=== PATIENT | female | born 1940 | race Asian ===

== ENCOUNTER 2016-11-28 10:51 | Emergency (ER) | payer OTHER ==
[~2016-11-28] VITALS: Ht 160 cm; Wt 72.6 kg
[2016-11-28 10:59] VITALS: BP_SYST 206
[2016-11-28] MEDS ORDERED: hydrALAZINE HCL 20 MG/ML VIAL IVP ONE (12:15)
[2016-11-28 12:34] LABS: BASOPHILS % (AUTO) 0.5 % (0.0-2.0); EOSINOPHILS # (AUTO) 0.2 K/uL (0.0-0.4); EOSINOPHILS % (AUTO) 4.8 % (0.0-4.0); HEMATOCRIT 43.6 % (36-48); LYMPHOCYTES # (AUTO) 1.8 K/uL (1.0-5.5); LYMPHOCYTES % (AUTO) 34.2 % (20.5-51.5); MEAN CORPUSCULAR HEMOGLOBIN 29 pg (27-31); MEAN CORPUSCULAR HGB CONC 32 % (32-36); MEAN CORPUSCULAR VOLUME 92 fL (79.0-98.0); MONOCYTES # (AUTO) 0.4 K/uL (0.0-1.0); MONOCYTES % (AUTO) 6.9 % (1.7-9.3); NEUTROPHILS # (AUTO) 2.8 K/uL (1.8-7.7); NEUTROPHILS % (AUTO) 53.6 % (40.0-70.0); PLATELET COUNT (AUTO) 336 K/uL (130-430); RED BLOOD CELL COUNT(AUTO) 4.76 MIL/uL (4.2-6.2); RED CELL DISTRIBUTION WIDTH 13.1 % (9.0-15.0); WHITE BLOOD COUNT (AUTO) 5.2 K/uL (4.8-10.8)
[2016-11-28 12:35] LABS: ANION GAP 7 (5-15); CALCIUM 9.8 mg/dL (8.4-11.0); CHLORIDE 99 mmol/L (98-107); CREATININE 0.81 mg/dL (0.55-1.30); GLUCOSE 185 mg/dL (70-99); POTASSIUM 3.3 mmol/L (3.5-5.1); SODIUM SERUM 137 mmol/L (136-145); UREA NITROGEN, BLOOD 13 mg/dL (8-21)
[2016-11-28 12:40] LABS: ALANINE AMINOTRANSFERASE 43 U/L (12-78); ASPARTATE AMINOTRANSFERASE 28 U/L (10-37); TOTAL BILIRUBIN 0.4 mg/dL (0.0-1.0)
[2016-11-28] MEDS ORDERED: GADOPENTETATE DIMEGLUMINE 15 ML VIAL IV ONE (14:14)
[2016-11-28] MEDS ORDERED: MECLIZINE HCL 25 MG TABLET (ANITVERT) PO ONE (16:15)
[2016-11-28 16:55] VITALS: BP_SYST 159
== END 2016-11-28 16:55 | disposition home or self-care (01) ==
LOC: SED 10:51
DX: G93.89 Other specified disorders of brain (principal); I10 Essential (primary) hypertension; Z90.49 Acquired absence of other specified parts of digestive tract
CPT/HCPCS: 36415; 70450; 70553; 71010; 80053; 83880; 84484; 85025; 96374; 99285; A9579; J0360; J8597

== ENCOUNTER 2017-03-17 11:33 | Emergency (ER) | payer OTHER ==
[~2017-03-17] VITALS: Ht 157.5 cm; Wt 68.0 kg
[2017-03-17 11:57] VITALS: BP_SYST 215
--- NOTE | 2017-03-17 12:00 | NUR ---
Patient to ER bed 7 to gown for evaluation. Side rails up. Report endorsed by DIANNE Baker.
--- NOTE | 2017-03-17 12:00 | NUR ---
Pt complains of facial pain to left side of face with minor drooping. Pt states pain has been happening for about two weeks but last night it got worse. Pt presents with minor facial drooping of mouth, but denies weakness to extremities. Pt relayed she has history of trigeminal neurolgia. Pt is nauseous and has vomited a few times. Blood pressure is elevated and patient states she did not take her BP medications this morning. No other injuries/complaints per patient or noted.
--- NOTE | 2017-03-17 12:01 | NUR ---
ER Dr. Ham at bedside examining patient.
[2017-03-17] MEDS ORDERED: methylPREDNISolone SOD SUCC/PF 62.5 MG/ML VIAL IVP ONE (12:30)
[2017-03-17] MEDS ORDERED: ONDANSETRON HCL 4 MG/2 ML VIAL IVP ONE ×2 (12:30→13:30)
[2017-03-17] MEDS ORDERED: HYDROmorphone 1 MG INJ. 1 MG/ML AMPUL IVP ONE ×2 (12:30→14:00)
--- NOTE | 2017-03-17 13:00 | NUR ---
Pt went to radiology in stable condition.
[2017-03-17 13:02] LABS: BASOPHILS % (AUTO) 0.3 % (0.0-2.0); EOSINOPHILS # (AUTO) 0.1 K/uL (0.0-0.4); EOSINOPHILS % (AUTO) 1.4 % (0.0-4.0); LYMPHOCYTES # (AUTO) 1.1 K/uL (1.0-5.5); MEAN CORPUSCULAR HEMOGLOBIN 30 pg (27-31); MEAN CORPUSCULAR HGB CONC 33 % (32-36); MEAN CORPUSCULAR VOLUME 91 fL (79.0-98.0); MONOCYTES # (AUTO) 0.4 K/uL (0.0-1.0); MONOCYTES % (AUTO) 5.4 % (1.7-9.3); NEUTROPHILS # (AUTO) 5.2 K/uL (1.8-7.7); NEUTROPHILS % (AUTO) 76.9 % (40.0-70.0); PLATELET COUNT (AUTO) 380 K/uL (130-430); RED BLOOD CELL COUNT(AUTO) 4.39 MIL/uL (4.2-6.2); RED CELL DISTRIBUTION WIDTH 12.9 % (9.0-15.0); WHITE BLOOD COUNT (AUTO) 6.9 K/uL (4.8-10.8)
[2017-03-17 13:12] LABS: ANION GAP 9 (5-15); CALCIUM 9.4 mg/dL (8.4-11.0); CHLORIDE 100 mmol/L (98-107); CREATININE 0.65 mg/dL (0.55-1.30); GLUCOSE 137 mg/dL (70-99); POTASSIUM 3.6 mmol/L (3.5-5.1); SODIUM SERUM 138 mmol/L (136-145); UREA NITROGEN, BLOOD 8 mg/dL (8-21)
[2017-03-17 13:14] LABS: PROTHROMBIN TIME 9.8 SECS (9.5-12.5)
--- NOTE | 2017-03-17 13:15 | NUR ---
Pt returned from radiology in stable condition. Radiology staff stated patient has been nauseous and needed sickness bag. notified.
[2017-03-17 13:20] LABS: ALCOHOL, BLOOD < 3 mg/dL (<10)
[2017-03-17] MEDS ORDERED: niCARdipine 25 MG in D5W 240 ML IV PRN (13:30)
[2017-03-17] MEDS ORDERED: niCARdipine 2.5 MG/ML, 10 ML VIAL (CARDENE) IV ONE (13:35)
[2017-03-17 13:45] LABS: ERYTHROCYTE SEDIMENTATION RATE 74 MM/HR (0-20)
--- NOTE | 2017-03-17 13:45 | NUR ---
Pt was vomiting, notified MD and ordered medications. Medication was given, pt tolerated well. No adverse reaction will continue to monitor.
[2017-03-17 14:05] LABS: BILIRUBIN,URINE NEGATIVE (NEGATIVE); BLOOD, URINE NEGATIVE (NEGATIVE); CLARITY/URINE CLEAR (CLEAR); COLOR,URINE YELLOW (YELLOW); GLUCOSE,URINE NEGATIVE (NEGATIVE); KETONES,URINE 1+ (NEGATIVE); LEUKOCYTE ESTERASE ,URINE NEGATIVE (NEGATIVE); NITRITE, URINE NEGATIVE (NEGATIVE); PH,URINE 6.5 (5.0-8.0); PROTEIN URINE NEGATIVE (NEGATIVE); UROBILINOGEN,URINE 0.2 (0.2-1.0)
--- NOTE | 2017-03-17 14:05 | NUR ---
Pt states still had pain to face, notified MD and ordered medications. Medication was given, pt tolerated well. No adverse reaction, will continue to monitor. at bedside.
[2017-03-17 14:16] LABS: BARBITURATE, URINE NEGATIVE (NEG <=200); BENZODIAZEPINE, URINE NEGATIVE (NEG <=150); CANNABINOID, URINE NEGATIVE (NEG <=50); COCAINE, URINE NEGATIVE (NEG <=150); METHAMPHETAMINES SCREEN,URINE NEGATIVE (NEG <=500); OPIATE, URINE NEGATIVE (NEG <=100); PHENCYCLIDINE SCREEN,URINE NEGATIVE (NEG <=25); UR TRICYCLIC ANTIDEPRESSANTS NEGATIVE (NEG <=300); URINE AMPHETAMINE NEGATIVE (NEG <=500); URINE METHADONE NEGATIVE (NEG <=200); URINE OXYCODONE SCREEN NEGATIVE (NEG <=100); URINE PROPOXYPHENE SCREEN NEGATIVE (NEG <=300)
[2017-03-17] MEDS ORDERED: NACL 0.9% 1,000 ML IV ONE (15:15)
[2017-03-17] MEDS ORDERED: PROMETHAZINE HCL 25 MG/ML AMP IVP ONE (15:15)
--- NOTE | 2017-03-17 15:20 | NUR ---
Medication was given, pt tolerated well. No adverse reaction, will continue to monitor.
[2017-03-17 16:04] VITALS: BP_SYST 126
--- NOTE | 2017-03-17 16:04 | NUR ---
Patient given written and verbal discharge instructions and verbalizes understanding. ER MD discussed with patient the results and treatment provided. Patient in stable condition. ID arm band removed. IV catheter removed intact and dressing applied, no active bleeding. Rx of [place] and Zofran given. Patient educated on pain management and to follow up with PMD. Pain Scale 0. Opportunity for questions provided and answered.
[2017-03-17] MEDS ORDERED: SIMV20TA2 PO (21:18)
[2017-03-17] MEDS ORDERED: GLU500 PO (21:18)
[2017-03-17] MEDS ORDERED: NOR10 PO (21:18)
[2017-03-17] MEDS ORDERED: CARB200T PO (21:18)
== END 2017-03-17 16:04 | disposition home or self-care (01) ==
LOC: SED 11:33
DX: G50.0 Trigeminal neuralgia (principal); I10 Essential (primary) hypertension; Z88.5 Allergy status to narcotic agent
CPT/HCPCS: 36415; 70450; 80048; 80307; 81003; 82550; 84484; 85025; 85610; 85651; 85730; 96361; 96374; 96375; 96376; 99285; G0481; G0482; J1170; J2405; J2550; J2930; J7030; J7040; J7060

== ENCOUNTER 2017-03-17 20:26 | Inpatient (IN) | payer OTHER ==
[~2017-03-17] VITALS: Ht 157.5 cm; Wt 65.8 kg
[2017-03-17 20:30] VITALS: BP_SYST 201
[2017-03-17] MEDS ORDERED: MORPHINE 4 MG/ML INJ. SYRINGE IVP ONE (21:15)
[2017-03-17] MEDS ORDERED: NACL 0.9% 1,000 ML IV ONE (21:15)
[2017-03-17] MEDS ORDERED: ONDANSETRON HCL 4 MG/2 ML VIAL IVP ONE (21:15)
[2017-03-17] MEDS ORDERED: NOR10 PO (21:18)
[2017-03-17] MEDS ORDERED: SIMV20TA2 PO (21:18)
[2017-03-17] MEDS ORDERED: GLU500 PO (21:18)
[2017-03-17] MEDS ORDERED: CARB200T PO (21:18)
[2017-03-17] MEDS ORDERED: LABETALOL 100 MG/ 20ML VIAL IVP ONE (22:00)
[2017-03-17] MEDS ORDERED: MORPHINE 2 MG/ML INJ. SYRINGE IVP PRN (22:00)
[2017-03-17] MEDS ORDERED: D5NS 1,000 ML IV SCH (22:00)
[2017-03-17 22:37] VITALS: BP_SYST 170
[2017-03-17 23:31] VITALS: BP_SYST 170
[2017-03-17 23:38] VITALS: BP_SYST 153
[2017-03-18] VITALS (7 sets, daily range): BP systolic 147–177
[2017-03-18] MEDS ORDERED: DEXTROSE 50% JECT 50 ML DISP.SYRIN IVP PRN (01:00)
[2017-03-18] MEDS ORDERED: DIPHENHYDRAMINE INJ 50 MG/ML VIAL IVP PRN (01:00)
[2017-03-18] MEDS: HYDROmorphone 1 MG INJ. 1 MG/ML AMPUL IVP PRN ×4 (01:09→21:36)
[2017-03-18] MEDS: hydrALAZINE HCL 20 MG/ML VIAL IVP PRN ×3 (04:16→16:16)
[2017-03-18] MEDS: INSULIN REGULAR, HUMAN 100 UNITS/ML, 10 ML VIAL (novoLIN R) SUBCUT PRN (05:56)
[2017-03-18] MEDS ORDERED: IPRATROPIUM BROM 0.5 MG/2.5 ML VIAL.NEB (ATROVENT) INH PRN (08:45)
[2017-03-18] MEDS ORDERED: ALBUTEROL SULFATE 0.083% 2.5 MG/3 ML VIAL.NEB INH PRN (08:45)
[2017-03-18] MEDS ORDERED: IPRATROPIUM/ALBUTEROL SULFATE 3 ML AMPUL.NEB ONE (09:04)
[2017-03-18] MEDS ORDERED: FUROSEMIDE 20 MG/2 ML VIAL IVP ONE (09:45)
[2017-03-18] MEDS ORDERED: ONDANSETRON HCL 4 MG/2 ML VIAL IVP ONE (09:45)
[2017-03-18] MEDS ORDERED: ONDANSETRON HCL 4 MG/2 ML VIAL ONE (09:53)
[2017-03-18] MEDS: D5NS 1,000 ML IV SCH (10:00)
[2017-03-18] MEDS: methylPREDNISolone SOD SUCC/PF 62.5 MG/ML VIAL IVP SCH ×3 (10:09→21:16)
[2017-03-18] MEDS ORDERED: methylPREDNISolone SOD SUCC/PF 62.5 MG/ML VIAL IVP ONE (10:15)
[2017-03-18] MEDS: CEFEPIME 1 GM in D5W 50 ML IV SCH ×2 (11:51→23:37)
[2017-03-18] MEDS: ACETAMINOPHEN 650 MG SUPP.RECT RC PRN (14:35)
[2017-03-18] MEDS: metroNIDAZOLE 500 mg/NS 100 ML IV SCH ×2 (14:35→21:16)
[2017-03-18] MEDS: IPRATROPIUM BROM 0.5 MG/2.5 ML VIAL.NEB (ATROVENT) INH SCH ×4 (18:14→23:00)
[2017-03-18] MEDS: ALBUTEROL SULFATE 0.083% 2.5 MG/3 ML VIAL.NEB INH SCH ×4 (18:14→23:00)
[2017-03-18] MEDS ORDERED: LIDOCAINE JELLY 5 ML TUBE MM ONE (22:00)
[2017-03-18] MEDS: ONDANSETRON HCL 4 MG/2 ML VIAL IVP PRN (23:37)
[2017-03-19] MEDS: ALBUTEROL SULFATE 0.083% 2.5 MG/3 ML VIAL.NEB INH SCH ×6 (03:00→23:00)
[2017-03-19] MEDS: IPRATROPIUM BROM 0.5 MG/2.5 ML VIAL.NEB (ATROVENT) INH SCH ×6 (03:00→23:00)
[2017-03-19] MEDS: methylPREDNISolone SOD SUCC/PF 62.5 MG/ML VIAL IVP SCH ×3 (06:01→21:58)
[2017-03-19] MEDS: D5NS 1,000 ML IV SCH (06:02)
[2017-03-19] MEDS: metroNIDAZOLE 500 mg/NS 100 ML IV SCH ×3 (06:03→21:58)
[2017-03-19 06:21] LABS: HEMATOCRIT 34.7 % (36-48); HEMOGLOBIN 11.7 g/dL (12.0-16.0); MEAN CORPUSCULAR HEMOGLOBIN 31 pg (27-31); MEAN CORPUSCULAR HGB CONC 34 % (32-36); MEAN CORPUSCULAR VOLUME 92 fL (79.0-98.0); PLATELET COUNT (AUTO) 318 K/uL (130-430); RED BLOOD CELL COUNT(AUTO) 3.77 MIL/uL (4.2-6.2); RED CELL DISTRIBUTION WIDTH 13.6 % (9.0-15.0); WHITE BLOOD COUNT (AUTO) 15.8 K/uL (4.8-10.8)
[2017-03-19 06:37] LABS: ANION GAP 4 (5-15); CALCIUM 8.9 mg/dL (8.4-11.0); CHLORIDE 109 mmol/L (98-107); CREATININE 0.88 mg/dL (0.55-1.30); GLUCOSE 130 mg/dL (70-99); POTASSIUM 3.5 mmol/L (3.5-5.1); SODIUM SERUM 143 mmol/L (136-145); UREA NITROGEN, BLOOD 25 mg/dL (8-21)
[2017-03-19 08:11] LABS: LYMPHOCYTES % (MANUAL) 2 % (20-46)
[2017-03-19 08:12] LABS: BASOPHILS % (MANUAL) 0 % (0-2); EOSINOPHILS % (MANUAL) 0 % (0-7); MONOCYTES % (MANUAL) 3 % (0-11)
[2017-03-19] MEDS: CEFEPIME 1 GM in D5W 50 ML IV SCH ×2 (10:14→23:30)
[2017-03-19] MEDS: hydrALAZINE HCL 20 MG/ML VIAL IVP PRN (10:16)
[2017-03-19 12:02] VITALS: BP_SYST 159
[2017-03-19] MEDS: INSULIN REGULAR, HUMAN 100 UNITS/ML, 10 ML VIAL (novoLIN R) SUBCUT PRN ×2 (12:09→18:01)
[2017-03-19] MEDS ORDERED: GADOPENTETATE DIMEGLUMINE 15 ML VIAL IV ONE (13:52)
[2017-03-19 16:50] VITALS: BP_SYST 152
[2017-03-19] MEDS: HYDROmorphone 1 MG INJ. 1 MG/ML AMPUL IVP PRN (18:09)
[2017-03-19] MEDS: ONDANSETRON HCL 4 MG/2 ML VIAL IVP PRN ×2 (18:10→18:19)
[2017-03-19 20:00] VITALS: BP_SYST 152
[2017-03-20] VITALS: BP_SYST 179
[2017-03-20] MEDS: ONDANSETRON HCL 4 MG/2 ML VIAL IVP PRN ×3 (01:08→11:42)
[2017-03-20] MEDS: HYDROmorphone 1 MG INJ. 1 MG/ML AMPUL IVP PRN ×3 (01:09→09:10)
[2017-03-20] MEDS: ALBUTEROL SULFATE 0.083% 2.5 MG/3 ML VIAL.NEB INH SCH ×5 (03:00→20:51)
[2017-03-20] MEDS: IPRATROPIUM BROM 0.5 MG/2.5 ML VIAL.NEB (ATROVENT) INH SCH ×5 (03:00→20:51)
[2017-03-20] MEDS: ACETAMINOPHEN 650 MG SUPP.RECT RC PRN (03:47)
[2017-03-20] MEDS: D5NS 1,000 ML IV SCH (03:51)
[2017-03-20] MEDS: methylPREDNISolone SOD SUCC/PF 62.5 MG/ML VIAL IVP SCH ×3 (06:08→22:46)
[2017-03-20] MEDS: metroNIDAZOLE 500 mg/NS 100 ML IV SCH ×3 (06:22→21:23)
[2017-03-20] MEDS: INSULIN REGULAR, HUMAN 100 UNITS/ML, 10 ML VIAL (novoLIN R) SUBCUT PRN ×3 (06:37→17:08)
[2017-03-20 07:30] LABS: BASOPHILS # (AUTO) 0.1 K/uL (0.0-0.2); BASOPHILS % (AUTO) 0.5 % (0.0-2.0); HEMATOCRIT 36.4 % (36-48); LYMPHOCYTES # (AUTO) 0.7 K/uL (1.0-5.5); LYMPHOCYTES % (AUTO) 3.6 % (20.5-51.5); MEAN CORPUSCULAR HEMOGLOBIN 31 pg (27-31); MEAN CORPUSCULAR HGB CONC 33 % (32-36); MEAN CORPUSCULAR VOLUME 93 fL (79.0-98.0); MONOCYTES % (AUTO) 4.9 % (1.7-9.3); NEUTROPHILS # (AUTO) 18.3 K/uL (1.8-7.7); PLATELET COUNT (AUTO) 378 K/uL (130-430); RED BLOOD CELL COUNT(AUTO) 3.91 MIL/uL (4.2-6.2); RED CELL DISTRIBUTION WIDTH 13.3 % (9.0-15.0); WHITE BLOOD COUNT (AUTO) 20.1 K/uL (4.8-10.8)
[2017-03-20 08:00] VITALS: BP_SYST 148
[2017-03-20 08:03] LABS: ANION GAP 9 (5-15); CALCIUM 8.8 mg/dL (8.4-11.0); CHLORIDE 111 mmol/L (98-107); CREATININE 1.13 mg/dL (0.55-1.30); GLUCOSE 221 mg/dL (70-99); POTASSIUM 3.9 mmol/L (3.5-5.1); SODIUM SERUM 146 mmol/L (136-145); UREA NITROGEN, BLOOD 28 mg/dL (8-21)
[2017-03-20 08:18] LABS: ALANINE AMINOTRANSFERASE 35 U/L (12-78); ALBUMIN 2.9 g/dL (3.4-4.8); ASPARTATE AMINOTRANSFERASE 24 U/L (10-37); TOTAL BILIRUBIN 0.9 mg/dL (0.0-1.0)
[2017-03-20] MEDS ORDERED: METOCLOPRAMIDE HCL 10 MG/2 ML VIAL IVP PRN (08:30)
[2017-03-20] MEDS ORDERED: DEXTROSE 50% JECT 50 ML DISP.SYRIN IVP PRN (09:45)
[2017-03-20] MEDS ORDERED: COMMUNICATION ORDER XX ONE (09:45)
[2017-03-20] MEDS ORDERED: *PPN PER PHARMACY XX PRN (09:45)
[2017-03-20] MEDS: CEFEPIME 1 GM in D5W 50 ML IV SCH ×2 (11:40→22:46)
[2017-03-20 12:35] VITALS: BP_SYST 155
[2017-03-20] MEDS ORDERED: SIMETHICONE 40 MG/0.6 ML ML ONE (13:13)
[2017-03-20] MEDS: MIDAZOLAM HCL 5 MG/5 ML VIAL ONE ×3 (13:41→15:21)
[2017-03-20] MEDS: MEPERIDINE HCL/PF 100 MG/ML AMP ONE ×2 (13:41→15:20)
[2017-03-20] MEDS: hydrALAZINE HCL 20 MG/ML VIAL IVP PRN (15:10)
[2017-03-20 16:54] VITALS: BP_SYST 134
[2017-03-20] MEDS: FAT EMULSIONS 250 ML IV SCH (17:09)
[2017-03-20] MEDS ORDERED: TPN PERIPHERAL 0.0001 ML, SODIUM ACETATE 40 MEQ, POTASSIUM CHLORIDE 20 MEQ, K PHOS 6 MM... IV SCH ×9 (18:00)
[2017-03-20 20:00] VITALS: BP_SYST 142
[2017-03-20] MEDS ORDERED: ACETAMINOPHEN 325 MG TABLET PO PRN (22:00)
[2017-03-21] VITALS (17 sets, daily range): BP systolic 106–169
[2017-03-21] MEDS: INSULIN REGULAR, HUMAN 100 UNITS/ML, 10 ML VIAL (novoLIN R) SUBCUT PRN ×4 (00:18→23:20)
[2017-03-21] MEDS: metroNIDAZOLE 500 mg/NS 100 ML IV SCH ×3 (05:58→21:23)
[2017-03-21] MEDS: methylPREDNISolone SOD SUCC/PF 62.5 MG/ML VIAL IVP SCH ×3 (06:08→21:23)
[2017-03-21] MEDS: IPRATROPIUM BROM 0.5 MG/2.5 ML VIAL.NEB (ATROVENT) INH SCH ×3 (07:00→15:00)
[2017-03-21] MEDS: ALBUTEROL SULFATE 0.083% 2.5 MG/3 ML VIAL.NEB INH SCH ×3 (07:00→15:00)
[2017-03-21 07:36] LABS: BASOPHILS # (AUTO) 0.1 K/uL (0.0-0.2); BASOPHILS % (AUTO) 0.6 % (0.0-2.0); HEMATOCRIT 34.3 % (36-48); HEMOGLOBIN 11.6 g/dL (12.0-16.0); LYMPHOCYTES # (AUTO) 0.9 K/uL (1.0-5.5); LYMPHOCYTES % (AUTO) 5.5 % (20.5-51.5); MEAN CORPUSCULAR HEMOGLOBIN 31 pg (27-31); MEAN CORPUSCULAR HGB CONC 34 % (32-36); MEAN CORPUSCULAR VOLUME 92 fL (79.0-98.0); MONOCYTES # (AUTO) 0.8 K/uL (0.0-1.0); NEUTROPHILS # (AUTO) 13.7 K/uL (1.8-7.7); NEUTROPHILS % (AUTO) 88.9 % (40.0-70.0); PLATELET COUNT (AUTO) 320 K/uL (130-430); RED BLOOD CELL COUNT(AUTO) 3.72 MIL/uL (4.2-6.2); RED CELL DISTRIBUTION WIDTH 13.5 % (9.0-15.0); WHITE BLOOD COUNT (AUTO) 15.5 K/uL (4.8-10.8)
[2017-03-21 08:11] LABS: ALBUMIN 2.8 g/dL (3.4-4.8); ANION GAP 6 (5-15); CALCIUM 8.8 mg/dL (8.4-11.0); CHLORIDE 109 mmol/L (98-107); GLUCOSE 181 mg/dL (70-99); PHOSPHORUS 2.9 mg/dL (2.7-4.5); POTASSIUM 3.8 mmol/L (3.5-5.1); SODIUM SERUM 143 mmol/L (136-145); TOTAL BILIRUBIN 0.5 mg/dL (0.0-1.0); UREA NITROGEN, BLOOD 33 mg/dL (8-21)
[2017-03-21] MEDS: hydrALAZINE HCL 20 MG/ML VIAL IVP PRN ×3 (08:22→23:03)
[2017-03-21 08:44] LABS: ALANINE AMINOTRANSFERASE 79 U/L (12-78); ASPARTATE AMINOTRANSFERASE 53 U/L (10-37)
[2017-03-21] MEDS: ADENOSINE 6MG/2ML VIAL IVP ONE ×2 (10:15→10:35)
[2017-03-21] MEDS ORDERED: ADENOSINE 6MG/2ML VIAL IVP ONE (10:15)
[2017-03-21] MEDS ORDERED: MIDAZOLAM HCL 5 MG/5 ML VIAL ONE (10:20)
[2017-03-21] MEDS ORDERED: AMIODARONE HCL 200 MG TABLET PO ONE (10:45)
[2017-03-21] MEDS ORDERED: MIDAZOLAM HCL 5 MG/5 ML VIAL IVP ONE (10:45)
[2017-03-21] MEDS: CEFEPIME 1 GM in D5W 50 ML IV SCH ×2 (11:18→23:02)
[2017-03-21] MEDS ORDERED: AMIODARONE HCL 900 MG in D5W 482 ML IV SCH (12:45)
[2017-03-21] MEDS ORDERED: AMIODARONE HCL 150 MG/3ML VIAL ONE (13:25)
[2017-03-21] MEDS ORDERED: AMIODARONE HCL 150 MG in D5W 100 ML IV ONE (13:30)
[2017-03-21] MEDS ORDERED: PANTOPRAZOLE SODIUM 40 MG TAB PO ONE (14:30)
[2017-03-21] MEDS ORDERED: ENOXAPARIN SODIUM 40 MG/0.4 ML SYRINGE SUBCUT ONE (14:30)
[2017-03-21] MEDS ORDERED: IOHEXOL 100 ML IV ONE (15:28)
[2017-03-21] MEDS: FAT EMULSIONS 250 ML IV SCH (17:42)
[2017-03-21] MEDS ORDERED: TPN PERIPHERAL 0.0001 ML, SODIUM ACETATE 40 MEQ, POTASSIUM CHLORIDE 20 MEQ, K PHOS 9 MM... IV SCH ×9 (18:00)
[2017-03-21] MEDS ORDERED: DIGOXIN 0.5 MG/2 ML AMP IVP ONE (21:00)
[2017-03-21] MEDS ORDERED: AMIODARONE HCL 200 MG TABLET PO SCH (21:00)
[2017-03-21] MEDS ORDERED: LORazepam 2 MG/ML VIAL IVP PRN (22:30)
[2017-03-21] MEDS ORDERED: LevALBUTEROL HCL 1.25 MG/0.5 ML *CONC.* VIAL.NEB (XOPENEX CONC.) INH ONE (23:00)
[2017-03-22] VITALS (23 sets, daily range): BP systolic 122–176
[2017-03-22] MEDS ORDERED: DIGOXIN 0.5 MG/2 ML AMP ONE (01:16)
[2017-03-22] MEDS: hydrALAZINE HCL 20 MG/ML VIAL IVP PRN ×5 (04:27→22:23)
[2017-03-22] MEDS: metroNIDAZOLE 500 mg/NS 100 ML IV SCH ×3 (05:41→21:23)
[2017-03-22] MEDS: methylPREDNISolone SOD SUCC/PF 62.5 MG/ML VIAL IVP SCH ×2 (05:41→13:36)
[2017-03-22] MEDS: INSULIN REGULAR, HUMAN 100 UNITS/ML, 10 ML VIAL (novoLIN R) SUBCUT PRN ×3 (06:11→17:27)
[2017-03-22 06:28] LABS: BASOPHILS % (AUTO) 0.2 % (0.0-2.0); HEMATOCRIT 37.6 % (36-48); HEMOGLOBIN 12.5 g/dL (12.0-16.0); LYMPHOCYTES # (AUTO) 0.4 K/uL (1.0-5.5); LYMPHOCYTES % (AUTO) 2.8 % (20.5-51.5); MEAN CORPUSCULAR HEMOGLOBIN 31 pg (27-31); MEAN CORPUSCULAR HGB CONC 33 % (32-36); MEAN CORPUSCULAR VOLUME 92 fL (79.0-98.0); MONOCYTES # (AUTO) 0.4 K/uL (0.0-1.0); MONOCYTES % (AUTO) 2.6 % (1.7-9.3); NEUTROPHILS % (AUTO) 94.4 % (40.0-70.0); PLATELET COUNT (AUTO) 363 K/uL (130-430); RED BLOOD CELL COUNT(AUTO) 4.08 MIL/uL (4.2-6.2); RED CELL DISTRIBUTION WIDTH 13.3 % (9.0-15.0); WHITE BLOOD COUNT (AUTO) 13.8 K/uL (4.8-10.8)
[2017-03-22 06:36] LABS: PROTHROMBIN TIME 10.6 SECS (9.5-12.5)
[2017-03-22 07:00] LABS: ALANINE AMINOTRANSFERASE 60 U/L (12-78); ALBUMIN 2.7 g/dL (3.4-4.8); ANION GAP 3 (5-15); ASPARTATE AMINOTRANSFERASE 19 U/L (10-37); CALCIUM 8.6 mg/dL (8.4-11.0); CHLORIDE 108 mmol/L (98-107); CREATININE 0.83 mg/dL (0.55-1.30); GLUCOSE 263 mg/dL (70-99); LIPASE 155 U/L (73-393); PHOSPHORUS 2.5 mg/dL (2.7-4.5); POTASSIUM 3.9 mmol/L (3.5-5.1); SODIUM SERUM 139 mmol/L (136-145); THYROID STIMULATING HORMONE 0.29 uIu/mL (0.36-3.74); TOTAL BILIRUBIN 0.5 mg/dL (0.0-1.0); UREA NITROGEN, BLOOD 30 mg/dL (8-21)
[2017-03-22] MEDS: LevALBUTEROL HCL 1.25 MG/0.5 ML *CONC.* VIAL.NEB (XOPENEX CONC.) INH SCH ×3 (08:03→19:57)
[2017-03-22] MEDS ORDERED: ENOXAPARIN SODIUM 40 MG/0.4 ML SYRINGE SUBCUT SCH (09:00)
[2017-03-22] MEDS ORDERED: PANTOPRAZOLE SODIUM 40 MG TAB PO SCH (09:00)
[2017-03-22] MEDS: CEFEPIME 1 GM in D5W 50 ML IV SCH (11:42)
[2017-03-22] MEDS: NYSTATIN 500,000 UNITS/5 ML UDC PO SCH ×2 (11:45→17:49)
[2017-03-22] MEDS ORDERED: AMIODARONE HCL 200 MG TABLET PO SCH ×2 (14:00→21:00)
[2017-03-22] MEDS ORDERED: METOPROLOL SUCCINATE 50 MG TAB.SR.24H (TOPROL XL) PO ONE (14:00)
[2017-03-22] MEDS ORDERED: AMIODARONE HCL 200 MG TABLET PO ONE (16:15)
[2017-03-22] MEDS ORDERED: TPN PERIPHERAL 0.0001 ML, SODIUM ACETATE 40 MEQ, POTASSIUM CHLORIDE 20 MEQ, K PHOS 12 M... IV SCH ×10 (18:00)
[2017-03-22] MEDS ORDERED: methylPREDNISolone SOD SUCC 40 MG/ML VIAL IVP SCH (21:00)
[2017-03-23] MEDS ORDERED: METOPROLOL SUCCINATE 50 MG TAB.SR.24H (TOPROL XL) PO SCH (09:00)
== END 2017-03-22 23:30 | disposition short-term general hospital (02) | DRG 871 ==
LOC: SED 20:26 → SMU 21:57 → STU 03-20 08:35 → SIC 03-21 10:37
PROVIDERS: ADMIT Internal Medicine Hospice and Palliative Medicine; ATTEND Internal Medicine Hospice and Palliative Medicine
PROC: 0DB68ZX Excision of Stomach, Via Natural or Artificial Opening Endoscopic, Diagnostic (ICD-10-PCS; principal; 2017-03-20 13:30)
DX: A41.9 Sepsis, unspecified organism (principal); J69.0 Pneumonitis due to inhalation of food and vomit; J96.01 Acute respiratory failure with hypoxia; E46 Unspecified protein-calorie malnutrition; I48.0 Paroxysmal atrial fibrillation; R13.10 Dysphagia, unspecified; D64.9 Anemia, unspecified; E11.9 Type 2 diabetes mellitus without complications; I47.1 Supraventricular tachycardia; B37.9 Candidiasis, unspecified; G50.0 Trigeminal neuralgia; I10 Essential (primary) hypertension; K21.0 Gastro-esophageal reflux disease with esophagitis; K29.70 Gastritis, unspecified, without bleeding; K31.7 Polyp of stomach and duodenum; Z79.899 Other long term (current) drug therapy; Z88.6 Allergy status to analgesic agent; Z88.8 Allergy status to other drugs, medicaments and biological substances; Z90.49 Acquired absence of other specified parts of digestive tract
CPT/HCPCS: 36415; 36600; 43239; 70450-TC; 70553; 71010; 71270-TC; 80048; 80053; 82803-TC; 82962; 83690-TC; 83735-TC; 83880; 84100-TC; 84443-TC; 84478-TC; 84484; 85007; 85025; 85027; 85610-TC; 87040-TC; 87081; 88305; 88312; 88313; 93005; 93306; 94640; 94760; 96361; 96374; 96375; 97110-GP; 99285; A9579; J0153; J0282; J0360; J0610; J0692; J1030; J1160; J1170; J1650; J1815; J1940; J2175; J2250; J2270; J2405; J2765; J2930; J3475; J3480; J3490; J7042; J7060; Q9967

== ENCOUNTER 2017-05-29 01:57 | Emergency (ER) | payer OTHER ==
[~2017-05-29] VITALS: Ht 157.5 cm; Wt 59.9 kg
[~2017-05-29 01:57] MED LIST: CARB200T PO; GLU500 PO; NOR10 PO; SIMV20TA2 PO
[2017-05-29 02:04] VITALS: BP_SYST 192
[2017-05-29] MEDS ORDERED: hydrALAZINE HCL 25 MG TABLET PO ONE (02:30)
[2017-05-29] MEDS ORDERED: IPRATROPIUM/ALBUTEROL SULFATE 3 ML AMPUL.NEB INH ONE (02:30)
[2017-05-29] MEDS ORDERED: hydrALAZINE HCL 25 MG TABLET ONE (02:47)
[2017-05-29 03:34] VITALS: BP_SYST 155
[2017-05-30] MEDS ORDERED: CAT.1 PO (07:00)
[2017-05-30] MEDS ORDERED: CARB200T PO (07:00)
[2017-05-30] MEDS ORDERED: AMI200 PO (07:01)
[2017-05-30] MEDS ORDERED: POTA-118 PO (07:03)
[2017-05-30] MEDS ORDERED: APIX5TAB PO (07:04)
[2017-05-30] MEDS ORDERED: HYDR-1115 PO (07:04)
[2017-05-30] MEDS ORDERED: METO25TA6 PO (07:05)
[2017-05-30] MEDS ORDERED: LOSA50TA3 PO (07:05)
[2017-05-30] MEDS ORDERED: PRO40 PO (07:06)
== END 2017-05-29 03:34 | disposition home or self-care (01) ==
LOC: SED 01:57
DX: I10 Essential (primary) hypertension (principal); R06.2 Wheezing; Z88.5 Allergy status to narcotic agent; Z88.6 Allergy status to analgesic agent
CPT/HCPCS: 94640; 99283

== ENCOUNTER 2017-05-30 06:19 | Inpatient (IN) | payer OTHER ==
[~2017-05-30] VITALS: Ht 157.5 cm; Wt 83.1 kg
[2017-05-30 06:35] VITALS: BP_SYST 188
[2017-05-30] MEDS ORDERED: CAT.1 PO (07:00)
[2017-05-30] MEDS ORDERED: cloNIDine HCL 0.1 MG TABLET PO ONE ×2 (07:00→08:15)
[2017-05-30] MEDS ORDERED: CARB200T PO (07:00)
[2017-05-30] MEDS ORDERED: AMI200 PO (07:01)
[2017-05-30] MEDS ORDERED: POTA-118 PO (07:03)
[2017-05-30] MEDS ORDERED: HYDR-1115 PO (07:04)
[2017-05-30] MEDS ORDERED: APIX5TAB PO (07:04)
[2017-05-30] MEDS ORDERED: LOSA50TA3 PO (07:05)
[2017-05-30] MEDS ORDERED: METO25TA6 PO (07:05)
[2017-05-30] MEDS ORDERED: PRO40 PO (07:06)
[2017-05-30 07:39] LABS: BASOPHILS % (AUTO) 0.3 % (0.0-2.0); EOSINOPHILS # (AUTO) 0.1 K/uL (0.0-0.4); EOSINOPHILS % (AUTO) 1.2 % (0.0-4.0); HEMATOCRIT 28.6 % (36-48); HEMOGLOBIN 9.9 g/dL (12.0-16.0); LYMPHOCYTES # (AUTO) 0.8 K/uL (1.0-5.5); LYMPHOCYTES % (AUTO) 10.6 % (20.5-51.5); MEAN CORPUSCULAR HEMOGLOBIN 33 pg (27-31); MEAN CORPUSCULAR HGB CONC 34 % (32-36); MEAN CORPUSCULAR VOLUME 95 fL (79.0-98.0); MONOCYTES # (AUTO) 0.6 K/uL (0.0-1.0); MONOCYTES % (AUTO) 8.5 % (1.7-9.3); NEUTROPHILS # (AUTO) 5.7 K/uL (1.8-7.7); NEUTROPHILS % (AUTO) 79.4 % (40.0-70.0); PLATELET COUNT (AUTO) 343 K/uL (130-430); RED CELL DISTRIBUTION WIDTH 14.3 % (9.0-15.0); WHITE BLOOD COUNT (AUTO) 7.2 K/uL (4.8-10.8)
[2017-05-30 07:46] LABS: ANION GAP 4 (5-15); CALCIUM 8.8 mg/dL (8.4-11.0); CHLORIDE 98 mmol/L (98-107); CREATININE 0.61 mg/dL (0.55-1.30); GLUCOSE 135 mg/dL (70-99); POTASSIUM 3.3 mmol/L (3.5-5.1); SODIUM SERUM 133 mmol/L (136-145); UREA NITROGEN, BLOOD 9 mg/dL (8-21)
[2017-05-30 07:51] LABS: ALANINE AMINOTRANSFERASE 19 U/L (12-78); ALBUMIN 2.8 g/dL (3.4-4.8); ASPARTATE AMINOTRANSFERASE 11 U/L (10-37); PROTHROMBIN TIME 10.1 SECS (9.5-12.5); TOTAL BILIRUBIN 0.6 mg/dL (0.0-1.0)
[2017-05-30] MEDS ORDERED: ALBUTEROL SULFATE 0.083% 2.5 MG/3 ML VIAL.NEB INH ONE ×2 (09:44→09:45)
[2017-05-30] MEDS ORDERED: IPRATROPIUM BROM 0.5 MG/2.5 ML VIAL.NEB (ATROVENT) INH ONE ×2 (09:44→09:45)
[2017-05-30] MEDS ORDERED: LEVOFLOXACIN 500 MG/D5W 100 ML IV ONE (10:00)
[2017-05-30 10:22] VITALS: BP_SYST 144
[2017-05-30] MEDS ORDERED: MIDAZOLAM HCL 5 MG/5 ML VIAL IVP ONE (12:01)
[2017-05-30] MEDS ORDERED: fentaNYL CITRATE/PF 100 MCG/2 ML AMP IVP ONE (12:01)
[2017-05-30] MEDS ORDERED: PROPOFOL 200MG/ 20ML VIAL (DIPRIVAN) IV ONE (12:01)
[2017-05-30] MEDS ORDERED: ROCURONIUM BROMIDE 10 MG/ML (ZEMURON) IV ONE (12:01)
[2017-05-30] MEDS ORDERED: SEVOFLURANE 15 MIN GAS INH ONE (12:01)
[2017-05-30] MEDS ORDERED: NS IRRIG SOLN 1000 ML IR ONE (12:01)
[2017-05-30] MEDS ORDERED: PANTOPRAZOLE SODIUM 40 MG TAB PO PRN (12:15)
[2017-05-30] MEDS ORDERED: cloNIDine HCL 0.1 MG TABLET PO PRN (12:15)
[2017-05-30 12:23] VITALS: BP_SYST 113
[2017-05-30] MEDS ORDERED: 0.45% NS 500 ML IV ONE (12:30)
[2017-05-30] MEDS ORDERED: cefTRIAXone 1 GM IVPB PREMIX 50 ML IV ONE (13:00)
[2017-05-30] MEDS ORDERED: AZITHROMYCIN 250 MG in NS 250 ML IV ONE (14:00)
[2017-05-30] MEDS: ALBUTEROL SULFATE 0.083% 2.5 MG/3 ML VIAL.NEB INH SCH ×3 (14:44→23:29)
[2017-05-30] MEDS: hydrALAZINE HCL 25 MG TABLET PO SCH ×3 (15:00→21:00)
[2017-05-30] MEDS: methylPREDNISolone SOD SUCC 40 MG/ML VIAL IVP SCH ×2 (15:03→21:40)
[2017-05-30 15:12] VITALS: BP_SYST 113
[2017-05-30 16:11] VITALS: BP_SYST 120
[2017-05-30] MEDS: metFORMIN HCL 500 MG TABLET PO SCH (18:04)
[2017-05-30 20:00] VITALS: BP_SYST 139
[2017-05-30] MEDS: SIMVASTATIN 20 MG TABLET PO SCH (21:37)
[2017-05-30] MEDS: METOPROLOL TARTRATE 25 MG TABLET PO SCH (21:38)
[2017-05-30] MEDS: LOSARTAN POTASSIUM 50 MG TABLET (COZAAR) PO SCH (21:39)
[2017-05-30] MEDS: AMIODARONE HCL 200 MG TABLET PO SCH (21:39)
[2017-05-30] MEDS: INSULIN REGULAR, HUMAN 100 UNITS/ML, 10 ML VIAL (novoLIN R) SUBCUT PRN (22:57)
[2017-05-31 00:42] VITALS: BP_SYST 144
[2017-05-31] MEDS: ALBUTEROL SULFATE 0.083% 2.5 MG/3 ML VIAL.NEB INH SCH ×6 (03:06→22:11)
[2017-05-31] MEDS: methylPREDNISolone SOD SUCC 40 MG/ML VIAL IVP SCH ×3 (06:10→21:05)
[2017-05-31 06:47] LABS: BASOPHILS % (AUTO) 0.1 % (0.0-2.0); HEMATOCRIT 30.6 % (36-48); HEMOGLOBIN 10.6 g/dL (12.0-16.0); LYMPHOCYTES # (AUTO) 0.6 K/uL (1.0-5.5); LYMPHOCYTES % (AUTO) 8.3 % (20.5-51.5); MEAN CORPUSCULAR HEMOGLOBIN 34 pg (27-31); MEAN CORPUSCULAR HGB CONC 35 % (32-36); MONOCYTES # (AUTO) 0.5 K/uL (0.0-1.0); MONOCYTES % (AUTO) 6.3 % (1.7-9.3); NEUTROPHILS # (AUTO) 6.2 K/uL (1.8-7.7); NEUTROPHILS % (AUTO) 85.3 % (40.0-70.0); PLATELET COUNT (AUTO) 334 K/uL (130-430); RED BLOOD CELL COUNT(AUTO) 3.09 MIL/uL (4.2-6.2); RED CELL DISTRIBUTION WIDTH 14.6 % (9.0-15.0); WHITE BLOOD COUNT (AUTO) 7.3 K/uL (4.8-10.8)
[2017-05-31 06:53] LABS: MEAN CORPUSCULAR VOLUME 95 fL (79.0-98.0)
[2017-05-31 07:19] LABS: ANION GAP 5 (5-15); CALCIUM 9.2 mg/dL (8.4-11.0); CHLORIDE 100 mmol/L (98-107); CREATININE 0.83 mg/dL (0.55-1.30); GLUCOSE 155 mg/dL (70-99); POTASSIUM 4.1 mmol/L (3.5-5.1); SODIUM SERUM 133 mmol/L (136-145); UREA NITROGEN, BLOOD 12 mg/dL (8-21)
[2017-05-31 08:00] VITALS: BP_SYST 155
[2017-05-31] MEDS: cefTRIAXone 1 GM IVPB PREMIX 50 ML IV SCH (09:24)
[2017-05-31] MEDS: metFORMIN HCL 500 MG TABLET PO SCH ×2 (09:25→17:43)
[2017-05-31] MEDS: METOPROLOL TARTRATE 25 MG TABLET PO SCH ×2 (09:27→21:00)
[2017-05-31] MEDS: hydrALAZINE HCL 25 MG TABLET PO SCH ×3 (09:27→20:56)
[2017-05-31] MEDS: LOSARTAN POTASSIUM 50 MG TABLET (COZAAR) PO SCH ×2 (09:28→20:56)
[2017-05-31] MEDS: AMIODARONE HCL 200 MG TABLET PO SCH ×2 (09:29→20:56)
[2017-05-31] MEDS: AZITHROMYCIN 250 MG in NS 250 ML IV SCH (09:35)
[2017-05-31] MEDS: INSULIN REGULAR, HUMAN 100 UNITS/ML, 10 ML VIAL (novoLIN R) SUBCUT PRN ×3 (11:29→21:12)
[2017-05-31 13:41] VITALS: BP_SYST 155
[2017-05-31] MEDS: cloNIDine HCL 0.1 MG TABLET PO PRN (14:45)
[2017-05-31 16:38] VITALS: BP_SYST 183
[2017-05-31] MEDS: ALPRAZolam 0.25 MG TABLET PO ONE ×2 (18:23→19:23)
[2017-05-31] MEDS: hydrALAZINE HCL 20 MG/ML VIAL IVP PRN (18:24)
[2017-05-31 20:00] VITALS: BP_SYST 153
[2017-05-31] MEDS: SIMVASTATIN 20 MG TABLET PO SCH (21:04)
[2017-05-31] MEDS ORDERED: FUROSEMIDE 40 MG/4 ML VIAL IVP ONE (22:45)
[2017-06-01] VITALS (7 sets, daily range): BP systolic 136–176
[2017-06-01] MEDS: ALBUTEROL SULFATE 0.083% 2.5 MG/3 ML VIAL.NEB INH SCH ×6 (03:11→22:55)
[2017-06-01] MEDS: cloNIDine HCL 0.1 MG TABLET PO PRN (05:03)
[2017-06-01] MEDS: methylPREDNISolone SOD SUCC 40 MG/ML VIAL IVP SCH ×3 (06:35→21:12)
[2017-06-01] MEDS: ALBUTEROL SULFATE 0.083% 2.5 MG/3 ML VIAL.NEB INH PRN ×2 (08:37→17:45)
[2017-06-01] MEDS: hydrALAZINE HCL 25 MG TABLET PO SCH ×3 (09:00→20:51)
[2017-06-01] MEDS: metFORMIN HCL 500 MG TABLET PO SCH ×2 (09:29→17:54)
[2017-06-01] MEDS: LOSARTAN POTASSIUM 50 MG TABLET (COZAAR) PO SCH ×2 (09:30→20:52)
[2017-06-01] MEDS: AMIODARONE HCL 200 MG TABLET PO SCH ×2 (09:30→20:50)
[2017-06-01] MEDS: METOPROLOL TARTRATE 25 MG TABLET PO SCH ×2 (09:31→20:49)
[2017-06-01] MEDS: cefTRIAXone 1 GM IVPB PREMIX 50 ML IV SCH (09:36)
[2017-06-01] MEDS: AZITHROMYCIN 250 MG in NS 250 ML IV SCH (10:36)
[2017-06-01] MEDS: ACETYLCYSTEINE 20% 4 ML VIAL (RT) INH SCH ×3 (11:47→20:15)
[2017-06-01] MEDS: INSULIN REGULAR, HUMAN 100 UNITS/ML, 10 ML VIAL (novoLIN R) SUBCUT PRN ×3 (12:52→20:59)
[2017-06-01] MEDS: LORazepam 1 MG TABLET PO PRN (18:44)
[2017-06-01] MEDS: SIMVASTATIN 20 MG TABLET PO SCH (20:50)
[2017-06-02 00:05] VITALS: BP_SYST 148
[2017-06-02] MEDS: ALBUTEROL SULFATE 0.083% 2.5 MG/3 ML VIAL.NEB INH PRN (01:14)
[2017-06-02] MEDS: ALBUTEROL SULFATE 0.083% 2.5 MG/3 ML VIAL.NEB INH SCH ×6 (03:00→23:02)
[2017-06-02] MEDS: methylPREDNISolone SOD SUCC 40 MG/ML VIAL IVP SCH (05:51)
[2017-06-02] MEDS: INSULIN REGULAR, HUMAN 100 UNITS/ML, 10 ML VIAL (novoLIN R) SUBCUT PRN ×2 (06:12→22:28)
[2017-06-02] MEDS: ACETYLCYSTEINE 20% 4 ML VIAL (RT) INH SCH ×3 (07:05→23:03)
[2017-06-02 08:06] VITALS: BP_SYST 181
[2017-06-02 08:16] LABS: BASOPHILS % (AUTO) 0.3 % (0.0-2.0); HEMATOCRIT 35.1 % (36-48); HEMOGLOBIN 11.7 g/dL (12.0-16.0); LYMPHOCYTES # (AUTO) 0.7 K/uL (1.0-5.5); LYMPHOCYTES % (AUTO) 4.5 % (20.5-51.5); MEAN CORPUSCULAR HEMOGLOBIN 32 pg (27-31); MEAN CORPUSCULAR HGB CONC 34 % (32-36); MEAN CORPUSCULAR VOLUME 97 fL (79.0-98.0); MONOCYTES # (AUTO) 1.2 K/uL (0.0-1.0); MONOCYTES % (AUTO) 7.6 % (1.7-9.3); PLATELET COUNT (AUTO) 464 K/uL (130-430); RED BLOOD CELL COUNT(AUTO) 3.63 MIL/uL (4.2-6.2); RED CELL DISTRIBUTION WIDTH 15.1 % (9.0-15.0); WHITE BLOOD COUNT (AUTO) 15.9 K/uL (4.8-10.8)
[2017-06-02] MEDS: METOPROLOL TARTRATE 25 MG TABLET PO SCH ×2 (08:33→22:44)
[2017-06-02] MEDS: LOSARTAN POTASSIUM 50 MG TABLET (COZAAR) PO SCH ×2 (08:34→22:44)
[2017-06-02] MEDS: cefTRIAXone 1 GM IVPB PREMIX 50 ML IV SCH (08:34)
[2017-06-02] MEDS: AMIODARONE HCL 200 MG TABLET PO SCH ×2 (08:34→22:44)
[2017-06-02] MEDS: metFORMIN HCL 500 MG TABLET PO SCH ×2 (08:34→18:02)
[2017-06-02] MEDS: hydrALAZINE HCL 25 MG TABLET PO SCH ×3 (08:35→22:43)
[2017-06-02 08:47] LABS: ANION GAP 5 (5-15); CALCIUM 9.5 mg/dL (8.4-11.0); CHLORIDE 97 mmol/L (98-107); CREATININE 0.71 mg/dL (0.55-1.30); GLUCOSE 145 mg/dL (70-99); POTASSIUM 4.2 mmol/L (3.5-5.1); SODIUM SERUM 133 mmol/L (136-145); UREA NITROGEN, BLOOD 18 mg/dL (8-21)
[2017-06-02 09:59] LABS: NEUTROPHILS % (AUTO) 87.6 % (40.0-70.0)
[2017-06-02] MEDS: AZITHROMYCIN 250 MG in NS 250 ML IV SCH (10:35)
[2017-06-02 11:17] VITALS: BP_SYST 162
[2017-06-02 12:39] VITALS: BP_SYST 138
[2017-06-02] MEDS: hydrALAZINE HCL 20 MG/ML VIAL IVP PRN ×3 (13:11→23:07)
[2017-06-02] MEDS: LORazepam 1 MG TABLET PO PRN ×2 (15:42→22:56)
[2017-06-02 16:17] VITALS: BP_SYST 156
[2017-06-02 20:00] VITALS: BP_SYST 134
[2017-06-02] MEDS: SIMVASTATIN 20 MG TABLET PO SCH (21:00)
[2017-06-02] MEDS: PANTOPRAZOLE SODIUM 40 MG TAB PO PRN (22:56)
[2017-06-03] VITALS (11 sets, daily range): BP systolic 116–180
[2017-06-03] MEDS: ALBUTEROL SULFATE 0.083% 2.5 MG/3 ML VIAL.NEB INH PRN (01:48)
[2017-06-03] MEDS: ALBUTEROL SULFATE 0.083% 2.5 MG/3 ML VIAL.NEB INH SCH ×3 (03:00→11:49)
[2017-06-03] MEDS: INSULIN REGULAR, HUMAN 100 UNITS/ML, 10 ML VIAL (novoLIN R) SUBCUT PRN ×3 (06:04→21:31)
[2017-06-03 07:49] LABS: ANION GAP 6 (5-15); CALCIUM 9.2 mg/dL (8.4-11.0); CHLORIDE 97 mmol/L (98-107); CREATININE 0.71 mg/dL (0.55-1.30); GLUCOSE 162 mg/dL (70-99); POTASSIUM 4.4 mmol/L (3.5-5.1); SODIUM SERUM 136 mmol/L (136-145); UREA NITROGEN, BLOOD 23 mg/dL (8-21)
[2017-06-03 07:51] LABS: BASOPHILS % (AUTO) 0.1 % (0.0-2.0); EOSINOPHILS % (AUTO) 0.1 % (0.0-4.0); HEMATOCRIT 32.3 % (36-48); HEMOGLOBIN 10.8 g/dL (12.0-16.0); LYMPHOCYTES # (AUTO) 0.5 K/uL (1.0-5.5); LYMPHOCYTES % (AUTO) 4.2 % (20.5-51.5); MEAN CORPUSCULAR HEMOGLOBIN 32 pg (27-31); MEAN CORPUSCULAR HGB CONC 33 % (32-36); MEAN CORPUSCULAR VOLUME 95 fL (79.0-98.0); MONOCYTES # (AUTO) 0.8 K/uL (0.0-1.0); MONOCYTES % (AUTO) 6.7 % (1.7-9.3); NEUTROPHILS # (AUTO) 10.9 K/uL (1.8-7.7); NEUTROPHILS % (AUTO) 88.9 % (40.0-70.0); PLATELET COUNT (AUTO) 483 K/uL (130-430); RED CELL DISTRIBUTION WIDTH 15.4 % (9.0-15.0); WHITE BLOOD COUNT (AUTO) 12.3 K/uL (4.8-10.8)
[2017-06-03] MEDS: ACETYLCYSTEINE 20% 4 ML VIAL (RT) INH SCH ×3 (08:11→21:00)
[2017-06-03] MEDS: metFORMIN HCL 500 MG TABLET PO SCH ×2 (08:26→18:00)
[2017-06-03] MEDS: AZITHROMYCIN 250 MG in NS 250 ML IV SCH (08:27)
[2017-06-03] MEDS: METOPROLOL TARTRATE 25 MG TABLET PO SCH ×2 (08:50→21:25)
[2017-06-03] MEDS: hydrALAZINE HCL 25 MG TABLET PO SCH ×3 (08:51→21:27)
[2017-06-03] MEDS: PANTOPRAZOLE SODIUM 40 MG TAB PO PRN (08:53)
[2017-06-03] MEDS: AMIODARONE HCL 200 MG TABLET PO SCH ×2 (08:53→21:26)
[2017-06-03] MEDS: LOSARTAN POTASSIUM 50 MG TABLET (COZAAR) PO SCH ×2 (08:54→21:25)
[2017-06-03] MEDS ORDERED: PREDNISONE 20 MG TABLET PO SCH (09:00)
[2017-06-03] MEDS: cefTRIAXone 1 GM IVPB PREMIX 50 ML IV SCH (10:23)
[2017-06-03] MEDS ORDERED: methylPREDNISolone SOD SUCC 40 MG/ML VIAL IVP ONE (13:00)
[2017-06-03] MEDS ORDERED: IPRATROPIUM/ALBUTEROL SULFATE 3 ML AMPUL.NEB INH ONE (13:00)
[2017-06-03] MEDS ORDERED: FUROSEMIDE 40 MG/4 ML VIAL IVP ONE (13:15)
[2017-06-03] MEDS: hydrALAZINE HCL 20 MG/ML VIAL IVP PRN (14:53)
[2017-06-03] MEDS ORDERED: DILTIAZEM HCL 25 MG/5 ML VIAL IVP ONE (15:45)
[2017-06-03] MEDS: DILTIAZEM HCL 125 MG in D5W 100 ML IV SCH (17:31)
[2017-06-03] MEDS: IPRATROPIUM/ALBUTEROL SULFATE 3 ML AMPUL.NEB INH SCH ×3 (17:41→23:22)
[2017-06-03] MEDS: SIMVASTATIN 20 MG TABLET PO SCH (21:26)
[2017-06-03] MEDS: methylPREDNISolone SOD SUCC 40 MG/ML VIAL IVP SCH (21:39)
[2017-06-04] VITALS (19 sets, daily range): BP systolic 96–165
[2017-06-04] MEDS: LORazepam 2 MG/ML VIAL IM PRN (02:24)
[2017-06-04] MEDS: cloNIDine HCL 0.1 MG TABLET PO PRN (02:25)
[2017-06-04] MEDS: IPRATROPIUM/ALBUTEROL SULFATE 3 ML AMPUL.NEB INH SCH ×6 (04:34→23:21)
[2017-06-04] MEDS ORDERED: DILTIAZEM HCL 125 MG/25 ML VIAL IV ONE (05:06)
[2017-06-04] MEDS: DILTIAZEM HCL 125 MG in D5W 100 ML IV SCH (05:42)
[2017-06-04] MEDS: INSULIN REGULAR, HUMAN 100 UNITS/ML, 10 ML VIAL (novoLIN R) SUBCUT PRN (06:24)
[2017-06-04 06:46] LABS: ALANINE AMINOTRANSFERASE 17 U/L (12-78); ALBUMIN 2.5 g/dL (3.4-4.8); ANION GAP 7 (5-15); ASPARTATE AMINOTRANSFERASE 14 U/L (10-37); CALCIUM 9.1 mg/dL (8.4-11.0); CHLORIDE 97 mmol/L (98-107); CREATININE 0.96 mg/dL (0.55-1.30); GLUCOSE 191 mg/dL (70-99); POTASSIUM 4.5 mmol/L (3.5-5.1); SODIUM SERUM 134 mmol/L (136-145); TOTAL BILIRUBIN 0.4 mg/dL (0.0-1.0); UREA NITROGEN, BLOOD 35 mg/dL (8-21)
[2017-06-04] MEDS: ACETYLCYSTEINE 20% 4 ML VIAL (RT) INH SCH ×3 (07:37→21:00)
[2017-06-04] MEDS: metFORMIN HCL 500 MG TABLET PO SCH ×2 (07:46→18:09)
[2017-06-04] MEDS: LOSARTAN POTASSIUM 50 MG TABLET (COZAAR) PO SCH ×2 (07:46→21:43)
[2017-06-04] MEDS: METOPROLOL TARTRATE 25 MG TABLET PO SCH ×2 (07:47→21:41)
[2017-06-04] MEDS: LORazepam 1 MG TABLET PO PRN (07:48)
[2017-06-04 07:49] LABS: BASOPHILS % (AUTO) 0.1 % (0.0-2.0); HEMATOCRIT 30.1 % (36-48); HEMOGLOBIN 10.1 g/dL (12.0-16.0); LYMPHOCYTES # (AUTO) 0.3 K/uL (1.0-5.5); LYMPHOCYTES % (AUTO) 2.6 % (20.5-51.5); MEAN CORPUSCULAR HEMOGLOBIN 32 pg (27-31); MEAN CORPUSCULAR HGB CONC 34 % (32-36); MEAN CORPUSCULAR VOLUME 96 fL (79.0-98.0); MONOCYTES # (AUTO) 0.3 K/uL (0.0-1.0); MONOCYTES % (AUTO) 2.5 % (1.7-9.3); NEUTROPHILS # (AUTO) 12.2 K/uL (1.8-7.7); NEUTROPHILS % (AUTO) 94.8 % (40.0-70.0); PLATELET COUNT (AUTO) 479 K/uL (130-430); RED BLOOD CELL COUNT(AUTO) 3.14 MIL/uL (4.2-6.2); WHITE BLOOD COUNT (AUTO) 12.8 K/uL (4.8-10.8)
[2017-06-04] MEDS: AMIODARONE HCL 200 MG TABLET PO SCH ×2 (09:00→21:42)
[2017-06-04] MEDS: hydrALAZINE HCL 25 MG TABLET PO SCH ×3 (09:00→21:42)
[2017-06-04] MEDS: PANTOPRAZOLE SODIUM 40 MG TAB PO PRN (09:51)
[2017-06-04] MEDS: FUROSEMIDE 40 MG/4 ML VIAL IVP SCH (09:52)
[2017-06-04] MEDS: methylPREDNISolone SOD SUCC 40 MG/ML VIAL IVP SCH ×2 (09:52→21:40)
[2017-06-04] MEDS: cefTRIAXone 1 GM IVPB PREMIX 50 ML IV SCH (09:53)
[2017-06-04] MEDS: SIMVASTATIN 20 MG TABLET PO SCH (21:42)
[2017-06-05] VITALS (13 sets, daily range): BP systolic 69–176
[2017-06-05] MEDS: IPRATROPIUM/ALBUTEROL SULFATE 3 ML AMPUL.NEB INH SCH (03:25)
[2017-06-05] MEDS ORDERED: METOPROLOL TARTRATE 50 MG TABLET PO ONE (04:45)
[2017-06-05] MEDS: LevALBUTEROL HCL 1.25 MG/0.5 ML *CONC.* VIAL.NEB (XOPENEX CONC.) INH SCH ×3 (07:16→19:36)
[2017-06-05] MEDS: ACETYLCYSTEINE 20% 4 ML VIAL (RT) INH SCH ×3 (07:16→21:00)
[2017-06-05 07:57] LABS: ALANINE AMINOTRANSFERASE 16 U/L (12-78); ALBUMIN 2.3 g/dL (3.4-4.8); ANION GAP 4 (5-15); ASPARTATE AMINOTRANSFERASE 10 U/L (10-37); CHLORIDE 101 mmol/L (98-107); CREATININE 1.27 mg/dL (0.55-1.30); GLUCOSE 192 mg/dL (70-99); POTASSIUM 4.4 mmol/L (3.5-5.1); SODIUM SERUM 136 mmol/L (136-145); TOTAL BILIRUBIN 0.3 mg/dL (0.0-1.0); UREA NITROGEN, BLOOD 52 mg/dL (8-21)
[2017-06-05 08:05] LABS: HEMATOCRIT 28.2 % (36-48); HEMOGLOBIN 9.7 g/dL (12.0-16.0); MEAN CORPUSCULAR HEMOGLOBIN 33 pg (27-31); MEAN CORPUSCULAR HGB CONC 34 % (32-36); MEAN CORPUSCULAR VOLUME 97 fL (79.0-98.0); PLATELET COUNT (AUTO) 556 K/uL (130-430); RED CELL DISTRIBUTION WIDTH 15.2 % (9.0-15.0); WHITE BLOOD COUNT (AUTO) 13.4 K/uL (4.8-10.8)
[2017-06-05] MEDS: LOSARTAN POTASSIUM 50 MG TABLET (COZAAR) PO SCH ×2 (08:09→20:55)
[2017-06-05] MEDS: metFORMIN HCL 500 MG TABLET PO SCH ×2 (08:10→17:21)
[2017-06-05] MEDS: hydrALAZINE HCL 25 MG TABLET PO SCH ×3 (08:12→20:55)
[2017-06-05] MEDS: AMIODARONE HCL 200 MG TABLET PO SCH ×2 (08:12→21:05)
[2017-06-05] MEDS: METOPROLOL TARTRATE 25 MG TABLET PO SCH ×2 (08:13→20:55)
[2017-06-05] MEDS: methylPREDNISolone SOD SUCC 40 MG/ML VIAL IVP SCH ×2 (08:13→21:04)
[2017-06-05] MEDS: FUROSEMIDE 40 MG/4 ML VIAL IVP SCH (08:13)
[2017-06-05] MEDS ORDERED: cefTRIAXone 1 GM IVPB PREMIX 50 ML IV SCH (09:00)
[2017-06-05] MEDS: NACL 0.9% 1,000 ML IV SCH ×2 (09:39→23:47)
[2017-06-05 09:51] LABS: BASOPHILS % (MANUAL) 0 % (0-2); EOSINOPHILS % (MANUAL) 0 % (0-7); LYMPHOCYTES % (MANUAL) 8 % (20-46); MONOCYTES % (MANUAL) 1 % (0-11)
[2017-06-05] MEDS: ONDANSETRON HCL 4 MG/2 ML VIAL IVP PRN (10:33)
[2017-06-05] MEDS: INSULIN REGULAR, HUMAN 100 UNITS/ML, 10 ML VIAL (novoLIN R) SUBCUT PRN (12:33)
[2017-06-05] MEDS: PIPERACILLIN/TAZO 3.375/DEX-IS 50 ML IV SCH ×3 (12:56→23:48)
[2017-06-05 15:08] LABS: EOSINOPHILS % (AUTO) 0.1 % (0.0-4.0)
[2017-06-05 15:09] LABS: BASOPHILS # (AUTO) 0.5 K/uL (0.0-0.2); BASOPHILS % (AUTO) 4.1 % (0.0-2.0); HEMATOCRIT 30.3 % (36-48); HEMOGLOBIN 9.9 g/dL (12.0-16.0); LYMPHOCYTES # (AUTO) 0.4 K/uL (1.0-5.5); LYMPHOCYTES % (AUTO) 3.6 % (20.5-51.5); MEAN CORPUSCULAR HEMOGLOBIN 31 pg (27-31); MEAN CORPUSCULAR HGB CONC 33 % (32-36); MEAN CORPUSCULAR VOLUME 95 fL (79.0-98.0); MONOCYTES # (AUTO) 0.3 K/uL (0.0-1.0); MONOCYTES % (AUTO) 2.6 % (1.7-9.3); NEUTROPHILS # (AUTO) 10.6 K/uL (1.8-7.7); NEUTROPHILS % (AUTO) 89.6 % (40.0-70.0); PLATELET COUNT (AUTO) 492 K/uL (130-430); RED BLOOD CELL COUNT(AUTO) 3.19 MIL/uL (4.2-6.2); RED CELL DISTRIBUTION WIDTH 15.1 % (9.0-15.0); WHITE BLOOD COUNT (AUTO) 11.8 K/uL (4.8-10.8)
[2017-06-05 15:15] LABS: ANION GAP 2 (5-15); CALCIUM 8.5 mg/dL (8.4-11.0); CHLORIDE 104 mmol/L (98-107); CREATININE 1.48 mg/dL (0.55-1.30); GLUCOSE 239 mg/dL (70-99); POTASSIUM 4.9 mmol/L (3.5-5.1); SODIUM SERUM 137 mmol/L (136-145); UREA NITROGEN, BLOOD 56 mg/dL (8-21)
[2017-06-05] MEDS ORDERED: NOREPINEPHRINE 4 MG/4 ML VIAL IV ONE (15:17)
[2017-06-05 15:20] LABS: ALANINE AMINOTRANSFERASE 16 U/L (12-78); ASPARTATE AMINOTRANSFERASE 13 U/L (10-37); TOTAL BILIRUBIN 0.3 mg/dL (0.0-1.0)
[2017-06-05] MEDS ORDERED: EPINEPHrine JECT 1 MG/10 ML SYR IVP ONE (15:40)
[2017-06-05] MEDS: LevALBUTEROL HCL 1.25 MG/0.5 ML *CONC.* VIAL.NEB (XOPENEX CONC.) INH PRN (15:56)
[2017-06-05] MEDS ORDERED: ROCURONIUM BROMIDE 10 MG/ML (ZEMURON) IV ONE (16:00)
[2017-06-05 16:19] LABS: INR 1.1 (0.8-1.2); PROTHROMBIN TIME 11.2 SECS (9.5-12.5)
[2017-06-05] MEDS: NOREPINEPHRINE BITARTRATE 4 MG in D5W 246 ML IV PRN (16:52)
[2017-06-05] MEDS: SIMVASTATIN 20 MG TABLET PO SCH (21:04)
[2017-06-06] VITALS (28 sets, daily range): BP systolic 66–153
[2017-06-06] MEDS: LORazepam 2 MG/ML VIAL IM PRN (00:54)
[2017-06-06] MEDS: NACL 0.9% 1,000 ML IV SCH ×3 (01:15→19:29)
[2017-06-06] MEDS: LevALBUTEROL HCL 1.25 MG/0.5 ML *CONC.* VIAL.NEB (XOPENEX CONC.) INH SCH ×4 (01:26→19:34)
[2017-06-06] MEDS: PIPERACILLIN/TAZO 3.375/DEX-IS 50 ML IV SCH ×4 (06:15→23:29)
[2017-06-06] MEDS: INSULIN REGULAR, HUMAN 100 UNITS/ML, 10 ML VIAL (novoLIN R) SUBCUT PRN ×2 (06:21→16:52)
[2017-06-06 06:51] LABS: ALANINE AMINOTRANSFERASE 30 U/L (12-78); ALBUMIN 1.8 g/dL (3.4-4.8); ANION GAP 7 (5-15); ASPARTATE AMINOTRANSFERASE 30 U/L (10-37); CALCIUM 8.5 mg/dL (8.4-11.0); CHLORIDE 103 mmol/L (98-107); CREATININE 1.53 mg/dL (0.55-1.30); GLUCOSE 206 mg/dL (70-99); POTASSIUM 4.1 mmol/L (3.5-5.1); SODIUM SERUM 139 mmol/L (136-145); TOTAL BILIRUBIN 0.6 mg/dL (0.0-1.0); UREA NITROGEN, BLOOD 63 mg/dL (8-21)
[2017-06-06 06:55] LABS: BASOPHILS # (AUTO) 0.4 K/uL (0.0-0.2); BASOPHILS % (AUTO) 1.9 % (0.0-2.0); HEMATOCRIT 33.9 % (36-48); HEMOGLOBIN 11.1 g/dL (12.0-16.0); LYMPHOCYTES # (AUTO) 0.4 K/uL (1.0-5.5); LYMPHOCYTES % (AUTO) 1.7 % (20.5-51.5); MEAN CORPUSCULAR HEMOGLOBIN 31 pg (27-31); MEAN CORPUSCULAR HGB CONC 33 % (32-36); MEAN CORPUSCULAR VOLUME 94 fL (79.0-98.0); MONOCYTES # (AUTO) 0.3 K/uL (0.0-1.0); MONOCYTES % (AUTO) 1.4 % (1.7-9.3); NEUTROPHILS # (AUTO) 19.7 K/uL (1.8-7.7); PLATELET COUNT (AUTO) 403 K/uL (130-430); RED BLOOD CELL COUNT(AUTO) 3.63 MIL/uL (4.2-6.2); RED CELL DISTRIBUTION WIDTH 14.5 % (9.0-15.0); WHITE BLOOD COUNT (AUTO) 20.8 K/uL (4.8-10.8)
[2017-06-06] MEDS ORDERED: AMIODARONE HCL 200 MG TABLET ONE (07:29)
[2017-06-06] MEDS ORDERED: AMIODARONE HCL 200 MG TABLET GT ONE (07:40)
[2017-06-06] MEDS: methylPREDNISolone SOD SUCC 40 MG/ML VIAL IVP SCH ×2 (08:03→21:13)
[2017-06-06] MEDS: AMIODARONE HCL 200 MG TABLET PO SCH (08:03)
[2017-06-06] MEDS: metFORMIN HCL 500 MG TABLET PO SCH (08:03)
[2017-06-06] MEDS: METOPROLOL TARTRATE 25 MG TABLET PO SCH ×2 (08:04→21:13)
[2017-06-06] MEDS: hydrALAZINE HCL 25 MG TABLET PO SCH ×3 (08:04→21:13)
[2017-06-06] MEDS: LOSARTAN POTASSIUM 50 MG TABLET (COZAAR) PO SCH ×2 (08:05→21:12)
[2017-06-06] MEDS: ACETYLCYSTEINE 20% 4 ML VIAL (RT) INH SCH ×3 (08:07→21:00)
[2017-06-06] MEDS ORDERED: AMIODARONE HCL 150 MG in D5W 100 ML IV ONE (08:15)
[2017-06-06] MEDS ORDERED: METOPROLOL TARTRATE 5 MG/5 ML VIAL IVP ONE ×2 (10:15→16:30)
[2017-06-06] MEDS: IBUPROFEN 100 MG/5 ML UDC NG PRN (12:55)
[2017-06-06] MEDS: NOREPINEPHRINE BITARTRATE 4 MG in D5W 246 ML IV PRN ×2 (14:48→19:29)
[2017-06-06] MEDS: LevALBUTEROL HCL 1.25 MG/0.5 ML *CONC.* VIAL.NEB (XOPENEX CONC.) INH PRN (15:11)
[2017-06-06] MEDS: LORazepam 2 MG/ML VIAL IVP PRN (15:46)
[2017-06-06] MEDS: AMIODARONE HCL 900 MG in D5W 482 ML IV SCH (17:05)
[2017-06-06] MEDS: SIMVASTATIN 20 MG TABLET PO SCH (21:12)
[2017-06-07] VITALS (31 sets, daily range): BP systolic 85–167
[2017-06-07] MEDS: LevALBUTEROL HCL 1.25 MG/0.5 ML *CONC.* VIAL.NEB (XOPENEX CONC.) INH SCH ×4 (01:36→19:43)
[2017-06-07] MEDS: NACL 0.9% 1,000 ML IV SCH ×3 (03:39→23:38)
[2017-06-07] MEDS ORDERED: NOREPINEPHRINE 4 MG/4 ML VIAL IV ONE (05:34)
[2017-06-07] MEDS: NOREPINEPHRINE BITARTRATE 4 MG in D5W 246 ML IV PRN (05:37)
[2017-06-07] MEDS: PIPERACILLIN/TAZO 3.375/DEX-IS 50 ML IV SCH ×4 (05:39→23:38)
[2017-06-07 06:39] LABS: HEMATOCRIT 34.2 % (36-48); HEMOGLOBIN 11.2 g/dL (12.0-16.0); MEAN CORPUSCULAR HEMOGLOBIN 31 pg (27-31); MEAN CORPUSCULAR HGB CONC 33 % (32-36); MEAN CORPUSCULAR VOLUME 93 fL (79.0-98.0); PLATELET COUNT (AUTO) 349 K/uL (130-430); RED BLOOD CELL COUNT(AUTO) 3.67 MIL/uL (4.2-6.2); RED CELL DISTRIBUTION WIDTH 15.1 % (9.0-15.0); WHITE BLOOD COUNT (AUTO) 24.7 K/uL (4.8-10.8)
[2017-06-07] MEDS: INSULIN REGULAR, HUMAN 100 UNITS/ML, 10 ML VIAL (novoLIN R) SUBCUT PRN ×4 (06:47→20:36)
[2017-06-07 07:03] LABS: ALANINE AMINOTRANSFERASE 72 U/L (12-78); ALBUMIN 1.7 g/dL (3.4-4.8); ANION GAP 6 (5-15); ASPARTATE AMINOTRANSFERASE 40 U/L (10-37); CHLORIDE 104 mmol/L (98-107); CREATININE 1.56 mg/dL (0.55-1.30); GLUCOSE 239 mg/dL (70-99); POTASSIUM 3.3 mmol/L (3.5-5.1); SODIUM SERUM 136 mmol/L (136-145); TOTAL BILIRUBIN 0.3 mg/dL (0.0-1.0); UREA NITROGEN, BLOOD 66 mg/dL (8-21)
[2017-06-07] MEDS: ACETYLCYSTEINE 20% 4 ML VIAL (RT) INH SCH ×2 (07:06→15:55)
[2017-06-07 07:56] LABS: BAND % (MANUAL) 5 % (0-6); BASOPHILS % (MANUAL) 0 % (0-2); EOSINOPHILS % (MANUAL) 0 % (0-7); LYMPHOCYTES % (MANUAL) 2 % (20-46); MONOCYTES % (MANUAL) 0 % (0-11)
[2017-06-07] MEDS ORDERED: POTASSIUM CHLORIDE 20 MEQ TAB.PRT.SR PO ONE (08:15)
[2017-06-07] MEDS: methylPREDNISolone SOD SUCC 40 MG/ML VIAL IVP SCH ×2 (09:34→20:32)
[2017-06-07] MEDS: METOPROLOL TARTRATE 50 MG TABLET PO SCH ×2 (09:34→20:31)
[2017-06-07] MEDS: FLUCONAZOLE 200 mg/ NS 100 ML IV SCH (12:06)
[2017-06-07] MEDS: MORPHINE 2 MG/ML INJ. SYRINGE IVP PRN (14:09)
[2017-06-07] MEDS ORDERED: AMIODARONE HCL 900 MG/18 ML VIAL IV ONE (20:17)
[2017-06-07] MEDS: AMIODARONE HCL 900 MG in D5W 482 ML IV SCH (20:31)
[2017-06-07] MEDS: SIMVASTATIN 20 MG TABLET PO SCH (20:32)
[2017-06-08] VITALS (31 sets, daily range): BP systolic 90–174
[2017-06-08] MEDS: LevALBUTEROL HCL 1.25 MG/0.5 ML *CONC.* VIAL.NEB (XOPENEX CONC.) INH SCH ×4 (00:50→19:36)
[2017-06-08] MEDS: PIPERACILLIN/TAZO 3.375/DEX-IS 50 ML IV SCH ×3 (05:02→17:31)
[2017-06-08 06:46] LABS: BASOPHILS % (AUTO) 0.2 % (0.0-2.0); HEMATOCRIT 29.6 % (36-48); HEMOGLOBIN 9.8 g/dL (12.0-16.0); LYMPHOCYTES # (AUTO) 0.4 K/uL (1.0-5.5); LYMPHOCYTES % (AUTO) 1.7 % (20.5-51.5); MEAN CORPUSCULAR HEMOGLOBIN 31 pg (27-31); MEAN CORPUSCULAR HGB CONC 33 % (32-36); MEAN CORPUSCULAR VOLUME 92 fL (79.0-98.0); MONOCYTES # (AUTO) 0.2 K/uL (0.0-1.0); NEUTROPHILS # (AUTO) 20.7 K/uL (1.8-7.7); NEUTROPHILS % (AUTO) 97.1 % (40.0-70.0); PLATELET COUNT (AUTO) 296 K/uL (130-430); RED BLOOD CELL COUNT(AUTO) 3.21 MIL/uL (4.2-6.2); RED CELL DISTRIBUTION WIDTH 15.1 % (9.0-15.0); WHITE BLOOD COUNT (AUTO) 21.3 K/uL (4.8-10.8)
[2017-06-08] MEDS: INSULIN REGULAR, HUMAN 100 UNITS/ML, 10 ML VIAL (novoLIN R) SUBCUT PRN ×4 (06:46→21:43)
[2017-06-08 06:55] LABS: ALANINE AMINOTRANSFERASE 48 U/L (12-78); ALBUMIN 1.5 g/dL (3.4-4.8); ANION GAP 7 (5-15); ASPARTATE AMINOTRANSFERASE 21 U/L (10-37); CHLORIDE 105 mmol/L (98-107); CREATININE 1.35 mg/dL (0.55-1.30); GLUCOSE 198 mg/dL (70-99); PHOSPHORUS 2.5 mg/dL (2.7-4.5); POTASSIUM 3.8 mmol/L (3.5-5.1); SODIUM SERUM 137 mmol/L (136-145); TOTAL BILIRUBIN 0.3 mg/dL (0.0-1.0); UREA NITROGEN, BLOOD 63 mg/dL (8-21)
[2017-06-08] MEDS: ACETYLCYSTEINE 20% 4 ML VIAL (RT) INH SCH ×3 (07:00→21:17)
[2017-06-08] MEDS: NACL 0.9% 1,000 ML IV SCH ×3 (09:15→21:38)
[2017-06-08] MEDS: methylPREDNISolone SOD SUCC 40 MG/ML VIAL IVP SCH ×2 (10:40→21:38)
[2017-06-08] MEDS: METOPROLOL TARTRATE 50 MG TABLET PO SCH ×2 (10:41→21:36)
[2017-06-08] MEDS: FLUCONAZOLE 200 mg/ NS 100 ML IV SCH (11:14)
[2017-06-08] MEDS ORDERED: AMIODARONE HCL 200 MG TABLET PO ONE (11:15)
[2017-06-08] MEDS: cloNIDine HCL 0.1 MG TABLET PO PRN (14:41)
[2017-06-08] MEDS: SIMVASTATIN 20 MG TABLET PO SCH (21:37)
[2017-06-08] MEDS: AMIODARONE HCL 200 MG TABLET PO SCH (21:38)
[2017-06-09] VITALS (27 sets, daily range): BP systolic 95–198
[2017-06-09] MEDS: PIPERACILLIN/TAZO 3.375/DEX-IS 50 ML IV SCH ×5 (00:06→23:07)
[2017-06-09] MEDS: MORPHINE 2 MG/ML INJ. SYRINGE IVP PRN (00:07)
[2017-06-09] MEDS: cloNIDine HCL 0.1 MG TABLET PO PRN ×2 (00:08→19:38)
[2017-06-09] MEDS: ONDANSETRON HCL 4 MG/2 ML VIAL IVP PRN ×2 (00:39→11:24)
[2017-06-09] MEDS: LevALBUTEROL HCL 1.25 MG/0.5 ML *CONC.* VIAL.NEB (XOPENEX CONC.) INH SCH ×4 (01:26→19:48)
[2017-06-09] MEDS: NACL 0.9% 1,000 ML IV SCH ×5 (03:56→23:07)
[2017-06-09] MEDS ORDERED: PIPERACILLIN/TAZOBACTAM 3.375 GM/VIAL (ZOSYN) IV ONE (05:55)
[2017-06-09 07:15] LABS: ALANINE AMINOTRANSFERASE 43 U/L (12-78); ANION GAP 5 (5-15); ASPARTATE AMINOTRANSFERASE 22 U/L (10-37); CALCIUM 7.9 mg/dL (8.4-11.0); CHLORIDE 108 mmol/L (98-107); CREATININE 0.99 mg/dL (0.55-1.30); GLUCOSE 164 mg/dL (70-99); POTASSIUM 4.1 mmol/L (3.5-5.1); SODIUM SERUM 138 mmol/L (136-145); TOTAL BILIRUBIN 0.2 mg/dL (0.0-1.0); UREA NITROGEN, BLOOD 61 mg/dL (8-21)
[2017-06-09 07:16] LABS: ALBUMIN 1.5 g/dL (3.4-4.8); PHOSPHORUS 2.1 mg/dL (2.7-4.5)
[2017-06-09] MEDS: ACETYLCYSTEINE 20% 4 ML VIAL (RT) INH SCH ×3 (07:35→19:51)
[2017-06-09 08:02] LABS: BASOPHILS % (AUTO) 0.1 % (0.0-2.0); HEMATOCRIT 27.9 % (36-48); HEMOGLOBIN 9.3 g/dL (12.0-16.0); LYMPHOCYTES # (AUTO) 0.4 K/uL (1.0-5.5); LYMPHOCYTES % (AUTO) 2.2 % (20.5-51.5); MEAN CORPUSCULAR HEMOGLOBIN 32 pg (27-31); MEAN CORPUSCULAR HGB CONC 33 % (32-36); MEAN CORPUSCULAR VOLUME 96 fL (79.0-98.0); MONOCYTES # (AUTO) 0.4 K/uL (0.0-1.0); MONOCYTES % (AUTO) 2.2 % (1.7-9.3); NEUTROPHILS # (AUTO) 17.7 K/uL (1.8-7.7); PLATELET COUNT (AUTO) 257 K/uL (130-430); RED BLOOD CELL COUNT(AUTO) 2.91 MIL/uL (4.2-6.2); RED CELL DISTRIBUTION WIDTH 15.3 % (9.0-15.0); WHITE BLOOD COUNT (AUTO) 18.5 K/uL (4.8-10.8)
[2017-06-09 08:20] LABS: NEUTROPHILS % (AUTO) 95.5 % (40.0-70.0)
[2017-06-09] MEDS: methylPREDNISolone SOD SUCC 40 MG/ML VIAL IVP SCH ×2 (08:35→21:24)
[2017-06-09] MEDS: METOPROLOL TARTRATE 50 MG TABLET PO SCH ×2 (08:35→21:25)
[2017-06-09] MEDS: AMIODARONE HCL 200 MG TABLET PO SCH (08:36)
[2017-06-09] MEDS: FLUCONAZOLE 200 mg/ NS 100 ML IV SCH (11:13)
[2017-06-09] MEDS: INSULIN REGULAR, HUMAN 100 UNITS/ML, 10 ML VIAL (novoLIN R) SUBCUT PRN ×4 (11:15→21:47)
[2017-06-09] MEDS ORDERED: NS 250 ML IV ONE (11:15)
[2017-06-09] MEDS ORDERED: DOCUSATE SODIUM 100 MG CAPSULE PO PRN (13:15)
[2017-06-09] MEDS ORDERED: FUROSEMIDE 40 MG/4 ML VIAL IVP ONE (13:15)
[2017-06-09] MEDS: LACTULOSE 20 GM/30 ML UDC PO SCH (21:24)
[2017-06-09] MEDS: SIMVASTATIN 20 MG TABLET PO SCH (21:26)
[2017-06-09] MEDS: LORazepam 2 MG/ML VIAL IVP PRN (23:55)
[2017-06-10] VITALS (27 sets, daily range): BP systolic 98–207
[2017-06-10] MEDS: LevALBUTEROL HCL 1.25 MG/0.5 ML *CONC.* VIAL.NEB (XOPENEX CONC.) INH SCH ×4 (01:00→19:38)
[2017-06-10] MEDS: PIPERACILLIN/TAZO 3.375/DEX-IS 50 ML IV SCH ×3 (05:32→16:58)
[2017-06-10] MEDS: INSULIN REGULAR, HUMAN 100 UNITS/ML, 10 ML VIAL (novoLIN R) SUBCUT PRN ×4 (06:13→21:01)
[2017-06-10 07:15] LABS: BASOPHILS % (AUTO) 0.2 % (0.0-2.0); EOSINOPHILS % (AUTO) 0.1 % (0.0-4.0); HEMATOCRIT 26.7 % (36-48); HEMOGLOBIN 9.1 g/dL (12.0-16.0); LYMPHOCYTES # (AUTO) 0.3 K/uL (1.0-5.5); LYMPHOCYTES % (AUTO) 1.8 % (20.5-51.5); MEAN CORPUSCULAR HEMOGLOBIN 33 pg (27-31); MEAN CORPUSCULAR HGB CONC 34 % (32-36); MEAN CORPUSCULAR VOLUME 97 fL (79.0-98.0); MONOCYTES # (AUTO) 0.4 K/uL (0.0-1.0); NEUTROPHILS % (AUTO) 95.9 % (40.0-70.0); PLATELET COUNT (AUTO) 259 K/uL (130-430); RED BLOOD CELL COUNT(AUTO) 2.77 MIL/uL (4.2-6.2); RED CELL DISTRIBUTION WIDTH 14.8 % (9.0-15.0); WHITE BLOOD COUNT (AUTO) 17.7 K/uL (4.8-10.8)
[2017-06-10 07:29] LABS: ALANINE AMINOTRANSFERASE 31 U/L (12-78); ALBUMIN 1.4 g/dL (3.4-4.8); ANION GAP 5 (5-15); ASPARTATE AMINOTRANSFERASE 16 U/L (10-37); CALCIUM 7.8 mg/dL (8.4-11.0); CHLORIDE 111 mmol/L (98-107); CREATININE 0.89 mg/dL (0.55-1.30); GLUCOSE 184 mg/dL (70-99); PHOSPHORUS 2.3 mg/dL (2.7-4.5); POTASSIUM 3.7 mmol/L (3.5-5.1); SODIUM SERUM 143 mmol/L (136-145); TOTAL BILIRUBIN 0.2 mg/dL (0.0-1.0); UREA NITROGEN, BLOOD 47 mg/dL (8-21)
[2017-06-10] MEDS: ACETYLCYSTEINE 20% 4 ML VIAL (RT) INH SCH ×3 (07:29→19:38)
[2017-06-10] MEDS ORDERED: AMIODARONE HCL 150 MG in D5W 100 ML IV ONE (08:30)
[2017-06-10] MEDS: PANTOPRAZOLE SODIUM 40 MG TAB PO PRN (08:52)
[2017-06-10] MEDS: LACTULOSE 20 GM/30 ML UDC PO SCH ×2 (08:52→20:52)
[2017-06-10] MEDS: methylPREDNISolone SOD SUCC 40 MG/ML VIAL IVP SCH ×2 (08:52→20:54)
[2017-06-10] MEDS: METOPROLOL TARTRATE 50 MG TABLET PO SCH ×2 (08:53→20:53)
[2017-06-10] MEDS: AMIODARONE HCL 200 MG TABLET PO SCH ×2 (08:54→20:53)
[2017-06-10] MEDS ORDERED: AMIODARONE HCL 200 MG TABLET PO SCH (09:00)
[2017-06-10] MEDS ORDERED: FUROSEMIDE 40 MG/4 ML VIAL IVP SCH (09:00)
[2017-06-10] MEDS: FLUCONAZOLE 200 mg/ NS 100 ML IV SCH (10:56)
[2017-06-10] MEDS: 0.45% NACL 1,000 ML IV SCH (10:56)
[2017-06-10] MEDS: cloNIDine HCL 0.1 MG TABLET PO PRN ×2 (11:20→22:14)
[2017-06-10] MEDS: ENALAPRILAT DIHYDRATE 1.25 MG/ML VIAL IVP PRN (18:27)
[2017-06-10] MEDS: SIMVASTATIN 20 MG TABLET PO SCH (20:53)
[2017-06-10] MEDS: LORazepam 2 MG/ML VIAL IVP PRN (22:14)
[2017-06-10] MEDS: MORPHINE 2 MG/ML INJ. SYRINGE IVP PRN (22:15)
[2017-06-11] VITALS (30 sets, daily range): BP systolic 102–196
[2017-06-11] MEDS: PIPERACILLIN/TAZO 3.375/DEX-IS 50 ML IV SCH ×5 (00:13→23:37)
[2017-06-11] MEDS: LevALBUTEROL HCL 1.25 MG/0.5 ML *CONC.* VIAL.NEB (XOPENEX CONC.) INH SCH ×4 (01:18→19:45)
[2017-06-11] MEDS: 0.45% NACL 1,000 ML IV SCH ×2 (01:58→15:42)
[2017-06-11 06:31] LABS: BASOPHILS % (AUTO) 0.2 % (0.0-2.0); EOSINOPHILS % (AUTO) 0.2 % (0.0-4.0); HEMATOCRIT 26.4 % (36-48); HEMOGLOBIN 8.8 g/dL (12.0-16.0); LYMPHOCYTES # (AUTO) 0.6 K/uL (1.0-5.5); MEAN CORPUSCULAR HEMOGLOBIN 32 pg (27-31); MEAN CORPUSCULAR HGB CONC 33 % (32-36); MEAN CORPUSCULAR VOLUME 96 fL (79.0-98.0); MONOCYTES # (AUTO) 0.4 K/uL (0.0-1.0); MONOCYTES % (AUTO) 1.9 % (1.7-9.3); NEUTROPHILS # (AUTO) 18.2 K/uL (1.8-7.7); NEUTROPHILS % (AUTO) 94.7 % (40.0-70.0); PLATELET COUNT (AUTO) 305 K/uL (130-430); RED BLOOD CELL COUNT(AUTO) 2.74 MIL/uL (4.2-6.2); RED CELL DISTRIBUTION WIDTH 15.3 % (9.0-15.0); WHITE BLOOD COUNT (AUTO) 19.2 K/uL (4.8-10.8)
[2017-06-11] MEDS: INSULIN REGULAR, HUMAN 100 UNITS/ML, 10 ML VIAL (novoLIN R) SUBCUT PRN ×3 (06:46→21:21)
[2017-06-11 07:00] LABS: ALANINE AMINOTRANSFERASE 29 U/L (12-78); ALBUMIN 1.4 g/dL (3.4-4.8); ANION GAP 2 (5-15); ASPARTATE AMINOTRANSFERASE 18 U/L (10-37); CALCIUM 7.7 mg/dL (8.4-11.0); CHLORIDE 111 mmol/L (98-107); CREATININE 1.06 mg/dL (0.55-1.30); GLUCOSE 258 mg/dL (70-99); PHOSPHORUS 1.8 mg/dL (2.7-4.5); POTASSIUM 3.6 mmol/L (3.5-5.1); SODIUM SERUM 141 mmol/L (136-145); TOTAL BILIRUBIN 0.2 mg/dL (0.0-1.0); UREA NITROGEN, BLOOD 44 mg/dL (8-21)
[2017-06-11] MEDS: ACETYLCYSTEINE 20% 4 ML VIAL (RT) INH SCH ×3 (07:18→19:45)
[2017-06-11] MEDS: LACTULOSE 20 GM/30 ML UDC PO SCH ×2 (09:33→21:18)
[2017-06-11] MEDS: methylPREDNISolone SOD SUCC 40 MG/ML VIAL IVP SCH ×2 (09:33→21:17)
[2017-06-11] MEDS: AMIODARONE HCL 200 MG TABLET PO SCH ×2 (09:34→21:18)
[2017-06-11] MEDS: METOPROLOL TARTRATE 50 MG TABLET PO SCH ×2 (09:35→21:00)
[2017-06-11] MEDS: MORPHINE 2 MG/ML INJ. SYRINGE IVP PRN ×2 (10:09→15:56)
[2017-06-11] MEDS: LORazepam 2 MG/ML VIAL IVP PRN (10:09)
[2017-06-11] MEDS: FLUCONAZOLE 200 mg/ NS 100 ML IV SCH (11:19)
[2017-06-11] MEDS: IBUPROFEN 100 MG/5 ML UDC NG PRN ×2 (11:45→16:14)
[2017-06-11] MEDS ORDERED: VANCOMYCIN HCL 1,000 MG in NS 250 ML IV ONE (15:45)
[2017-06-11] MEDS: cloNIDine HCL 0.1 MG TABLET PO PRN (16:14)
[2017-06-11] MEDS: SIMVASTATIN 20 MG TABLET PO SCH (21:19)
[2017-06-12] VITALS (33 sets, daily range): BP systolic 107–192
[2017-06-12] MEDS: LevALBUTEROL HCL 1.25 MG/0.5 ML *CONC.* VIAL.NEB (XOPENEX CONC.) INH SCH ×4 (00:54→19:52)
[2017-06-12] MEDS: cloNIDine HCL 0.1 MG TABLET PO PRN ×2 (04:37→11:35)
[2017-06-12] MEDS: PIPERACILLIN/TAZO 3.375/DEX-IS 50 ML IV SCH ×4 (06:00→23:33)
[2017-06-12] MEDS: ACETYLCYSTEINE 20% 4 ML VIAL (RT) INH SCH ×3 (07:25→20:56)
[2017-06-12] MEDS: INSULIN REGULAR, HUMAN 100 UNITS/ML, 10 ML VIAL (novoLIN R) SUBCUT PRN ×4 (07:43→20:52)
[2017-06-12] MEDS ORDERED: AMIODARONE HCL 150 MG in D5W 100 ML IV ONE (07:45)
[2017-06-12] MEDS: AMIODARONE HCL 200 MG TABLET PO SCH ×2 (08:25→20:36)
[2017-06-12] MEDS: METOPROLOL TARTRATE 50 MG TABLET PO SCH ×2 (08:26→20:35)
[2017-06-12] MEDS: methylPREDNISolone SOD SUCC 40 MG/ML VIAL IVP SCH ×2 (08:27→20:34)
[2017-06-12] MEDS: LACTULOSE 20 GM/30 ML UDC PO SCH ×2 (08:28→20:35)
[2017-06-12] MEDS: ENALAPRILAT DIHYDRATE 1.25 MG/ML VIAL IVP PRN ×2 (10:15→16:12)
[2017-06-12] MEDS: FLUCONAZOLE 200 mg/ NS 100 ML IV SCH (11:33)
[2017-06-12] MEDS: MORPHINE 2 MG/ML INJ. SYRINGE IVP PRN (11:33)
[2017-06-12] MEDS: 0.45% NACL 1,000 ML IV SCH (12:45)
[2017-06-12] MEDS: VANCOMYCIN HCL 750 MG in NS 250 ML IV SCH ×2 (16:18→17:38)
[2017-06-12] MEDS: SIMVASTATIN 20 MG TABLET PO SCH (20:34)
[2017-06-13] VITALS (34 sets, daily range): BP systolic 111–202
[2017-06-13] MEDS: LevALBUTEROL HCL 1.25 MG/0.5 ML *CONC.* VIAL.NEB (XOPENEX CONC.) INH SCH ×4 (01:02→19:46)
[2017-06-13] MEDS: ENALAPRILAT DIHYDRATE 1.25 MG/ML VIAL IVP PRN ×2 (01:27→09:58)
[2017-06-13] MEDS: MORPHINE 2 MG/ML INJ. SYRINGE IVP PRN ×2 (03:26→10:27)
[2017-06-13] MEDS: LORazepam 2 MG/ML VIAL IVP PRN (04:36)
[2017-06-13] MEDS: PIPERACILLIN/TAZO 3.375/DEX-IS 50 ML IV SCH ×4 (05:50→23:24)
[2017-06-13] MEDS: INSULIN REGULAR, HUMAN 100 UNITS/ML, 10 ML VIAL (novoLIN R) SUBCUT PRN ×4 (06:48→20:39)
[2017-06-13] MEDS: ACETYLCYSTEINE 20% 4 ML VIAL (RT) INH SCH ×3 (07:28→19:47)
[2017-06-13] MEDS ORDERED: FUROSEMIDE 40 MG/4 ML VIAL IVP ONE (09:30)
[2017-06-13] MEDS: methylPREDNISolone SOD SUCC 40 MG/ML VIAL IVP SCH ×2 (09:53→20:23)
[2017-06-13] MEDS: LACTULOSE 20 GM/30 ML UDC PO SCH ×2 (09:53→20:23)
[2017-06-13] MEDS: AMIODARONE HCL 200 MG TABLET PO SCH ×2 (09:54→20:22)
[2017-06-13] MEDS: METOPROLOL TARTRATE 50 MG TABLET PO SCH ×2 (09:54→20:23)
[2017-06-13] MEDS: PANTOPRAZOLE SODIUM 40 MG TAB PO PRN (09:55)
[2017-06-13 10:07] LABS: BASOPHILS # (AUTO) 0.2 K/uL (0.0-0.2); EOSINOPHILS # (AUTO) 0.1 K/uL (0.0-0.4); EOSINOPHILS % (AUTO) 0.4 % (0.0-4.0); HEMATOCRIT 27.6 % (36-48); HEMOGLOBIN 9.1 g/dL (12.0-16.0); LYMPHOCYTES # (AUTO) 0.9 K/uL (1.0-5.5); LYMPHOCYTES % (AUTO) 4.7 % (20.5-51.5); MEAN CORPUSCULAR HEMOGLOBIN 31 pg (27-31); MEAN CORPUSCULAR HGB CONC 33 % (32-36); MEAN CORPUSCULAR VOLUME 94 fL (79.0-98.0); MONOCYTES # (AUTO) 0.4 K/uL (0.0-1.0); MONOCYTES % (AUTO) 2.3 % (1.7-9.3); NEUTROPHILS # (AUTO) 16.9 K/uL (1.8-7.7); NEUTROPHILS % (AUTO) 91.6 % (40.0-70.0); PLATELET COUNT (AUTO) 279 K/uL (130-430); RED BLOOD CELL COUNT(AUTO) 2.93 MIL/uL (4.2-6.2); RED CELL DISTRIBUTION WIDTH 15.4 % (9.0-15.0); WHITE BLOOD COUNT (AUTO) 18.5 K/uL (4.8-10.8)
[2017-06-13 10:15] LABS: ALANINE AMINOTRANSFERASE 32 U/L (12-78); ALBUMIN 1.5 g/dL (3.4-4.8); ANION GAP 4 (5-15); ASPARTATE AMINOTRANSFERASE 17 U/L (10-37); CALCIUM 7.9 mg/dL (8.4-11.0); CHLORIDE 106 mmol/L (98-107); CREATININE 0.96 mg/dL (0.55-1.30); GLUCOSE 230 mg/dL (70-99); SODIUM SERUM 138 mmol/L (136-145); TOTAL BILIRUBIN 0.2 mg/dL (0.0-1.0); UREA NITROGEN, BLOOD 50 mg/dL (8-21)
[2017-06-13] MEDS: cloNIDine HCL 0.1 MG TABLET PO PRN ×2 (10:22→15:47)
[2017-06-13] MEDS: FLUCONAZOLE 200 mg/ NS 100 ML IV SCH (10:47)
[2017-06-13] MEDS ORDERED: ACETYLCYSTEINE 20% 4 ML VIAL (RT) ONE (13:51)
[2017-06-13] MEDS: 0.45% NACL 1,000 ML IV SCH (14:37)
[2017-06-13] MEDS: VANCOMYCIN HCL 750 MG in NS 250 ML IV SCH (16:50)
[2017-06-13] MEDS: SIMVASTATIN 20 MG TABLET PO SCH (20:23)
[2017-06-14] VITALS (33 sets, daily range): BP systolic 93–195
[2017-06-14] MEDS: LevALBUTEROL HCL 1.25 MG/0.5 ML *CONC.* VIAL.NEB (XOPENEX CONC.) INH SCH ×4 (02:38→19:59)
[2017-06-14] MEDS: ENALAPRILAT DIHYDRATE 1.25 MG/ML VIAL IVP PRN (05:31)
[2017-06-14] MEDS: PIPERACILLIN/TAZO 3.375/DEX-IS 50 ML IV SCH ×3 (05:31→17:37)
[2017-06-14 06:02] LABS: BASOPHILS % (AUTO) 0.2 % (0.0-2.0); EOSINOPHILS % (AUTO) 0.2 % (0.0-4.0); HEMATOCRIT 25.5 % (36-48); HEMOGLOBIN 8.4 g/dL (12.0-16.0); LYMPHOCYTES # (AUTO) 0.7 K/uL (1.0-5.5); LYMPHOCYTES % (AUTO) 4.1 % (20.5-51.5); MEAN CORPUSCULAR HEMOGLOBIN 31 pg (27-31); MEAN CORPUSCULAR HGB CONC 33 % (32-36); MEAN CORPUSCULAR VOLUME 94 fL (79.0-98.0); MONOCYTES # (AUTO) 0.3 K/uL (0.0-1.0); MONOCYTES % (AUTO) 1.5 % (1.7-9.3); PLATELET COUNT (AUTO) 338 K/uL (130-430); RED CELL DISTRIBUTION WIDTH 15.7 % (9.0-15.0)
[2017-06-14 06:17] LABS: ALANINE AMINOTRANSFERASE 25 U/L (12-78); ALBUMIN 1.4 g/dL (3.4-4.8); ASPARTATE AMINOTRANSFERASE 14 U/L (10-37); CALCIUM 7.6 mg/dL (8.4-11.0); CREATININE 0.84 mg/dL (0.55-1.30); GLUCOSE 244 mg/dL (70-99); TOTAL BILIRUBIN 0.2 mg/dL (0.0-1.0); UREA NITROGEN, BLOOD 42 mg/dL (8-21)
[2017-06-14] MEDS: INSULIN REGULAR, HUMAN 100 UNITS/ML, 10 ML VIAL (novoLIN R) SUBCUT PRN ×3 (06:43→21:07)
[2017-06-14 06:51] LABS: CHLORIDE 106 mmol/L (98-107); POTASSIUM 3.8 mmol/L (3.5-5.1); SODIUM SERUM 136 mmol/L (136-145)
[2017-06-14 06:58] LABS: ANION GAP < 3 (5-15)
[2017-06-14 07:27] LABS: PROTHROMBIN TIME 9.8 SECS (9.5-12.5)
[2017-06-14] MEDS: ACETYLCYSTEINE 20% 4 ML VIAL (RT) INH SCH (07:51)
[2017-06-14] MEDS: MORPHINE 2 MG/ML INJ. SYRINGE IVP PRN ×3 (08:19→20:58)
[2017-06-14] MEDS: methylPREDNISolone SOD SUCC 40 MG/ML VIAL IVP SCH ×2 (09:05→20:57)
[2017-06-14] MEDS: LACTULOSE 20 GM/30 ML UDC PO SCH ×2 (09:05→21:00)
[2017-06-14] MEDS: METOPROLOL TARTRATE 50 MG TABLET PO SCH ×2 (09:06→21:00)
[2017-06-14] MEDS: AMIODARONE HCL 200 MG TABLET PO SCH ×2 (09:07→21:00)
[2017-06-14] MEDS: cloNIDine HCL 0.1 MG TABLET PO PRN (10:59)
[2017-06-14] MEDS: FLUCONAZOLE 200 mg/ NS 100 ML IV SCH (12:09)
[2017-06-14] MEDS: VANCOMYCIN HCL 750 MG in NS 250 ML IV SCH (17:37)
[2017-06-14] MEDS: 0.45% NACL 1,000 ML IV SCH (18:05)
[2017-06-14] MEDS: SIMVASTATIN 20 MG TABLET PO SCH (21:00)
[2017-06-15] VITALS (31 sets, daily range): BP systolic 98–190
[2017-06-15] MEDS: PIPERACILLIN/TAZO 3.375/DEX-IS 50 ML IV SCH ×3 (00:08→11:42)
[2017-06-15] MEDS: LevALBUTEROL HCL 1.25 MG/0.5 ML *CONC.* VIAL.NEB (XOPENEX CONC.) INH SCH ×4 (01:05→20:17)
[2017-06-15] MEDS: MORPHINE 2 MG/ML INJ. SYRINGE IVP PRN ×7 (01:37→23:12)
[2017-06-15 05:53] LABS: BASOPHILS % (AUTO) 0.1 % (0.0-2.0); EOSINOPHILS % (AUTO) 0.1 % (0.0-4.0); HEMATOCRIT 24.8 % (36-48); HEMOGLOBIN 7.8 g/dL (12.0-16.0); LYMPHOCYTES # (AUTO) 0.5 K/uL (1.0-5.5); LYMPHOCYTES % (AUTO) 2.6 % (20.5-51.5); MEAN CORPUSCULAR HEMOGLOBIN 29 pg (27-31); MEAN CORPUSCULAR HGB CONC 32 % (32-36); MEAN CORPUSCULAR VOLUME 92 fL (79.0-98.0); MONOCYTES # (AUTO) 0.1 K/uL (0.0-1.0); MONOCYTES % (AUTO) 0.7 % (1.7-9.3); NEUTROPHILS # (AUTO) 16.8 K/uL (1.8-7.7); NEUTROPHILS % (AUTO) 96.5 % (40.0-70.0); PLATELET COUNT (AUTO) 306 K/uL (130-430); RED CELL DISTRIBUTION WIDTH 15.8 % (9.0-15.0); WHITE BLOOD COUNT (AUTO) 17.4 K/uL (4.8-10.8)
[2017-06-15 06:05] LABS: ALANINE AMINOTRANSFERASE 26 U/L (12-78); ALBUMIN 1.3 g/dL (3.4-4.8); ANION GAP 3 (5-15); ASPARTATE AMINOTRANSFERASE 20 U/L (10-37); CALCIUM 7.7 mg/dL (8.4-11.0); CHLORIDE 108 mmol/L (98-107); CREATININE 0.52 mg/dL (0.55-1.30); GLUCOSE 167 mg/dL (70-99); POTASSIUM 4.2 mmol/L (3.5-5.1); SODIUM SERUM 140 mmol/L (136-145); TOTAL BILIRUBIN 0.2 mg/dL (0.0-1.0); UREA NITROGEN, BLOOD 33 mg/dL (8-21)
[2017-06-15] MEDS: INSULIN REGULAR, HUMAN 100 UNITS/ML, 10 ML VIAL (novoLIN R) SUBCUT PRN ×3 (06:27→20:27)
[2017-06-15] MEDS: ACETYLCYSTEINE 20% 4 ML VIAL (RT) INH SCH ×3 (07:03→20:17)
[2017-06-15] MEDS: methylPREDNISolone SOD SUCC 40 MG/ML VIAL IVP SCH ×2 (08:58→20:24)
[2017-06-15] MEDS: LORazepam 2 MG/ML VIAL IVP PRN (08:58)
[2017-06-15] MEDS ORDERED: FUROSEMIDE 40 MG/4 ML VIAL IVP ONE (10:15)
[2017-06-15] MEDS: FLUCONAZOLE 200 mg/ NS 100 ML IV SCH (12:35)
[2017-06-15] MEDS: LACTULOSE 20 GM/30 ML UDC PO SCH ×2 (12:49→20:24)
[2017-06-15] MEDS: AMIODARONE HCL 200 MG TABLET PO SCH ×2 (12:50→20:25)
[2017-06-15] MEDS: METOPROLOL TARTRATE 50 MG TABLET PO SCH ×2 (12:51→20:25)
[2017-06-15] MEDS: VANCOMYCIN HCL 750 MG in NS 250 ML IV SCH (17:13)
[2017-06-15] MEDS: 0.45% NACL 1,000 ML IV SCH (17:14)
[2017-06-15] MEDS: SIMVASTATIN 20 MG TABLET PO SCH (20:24)
[2017-06-15] MEDS: CEFEPIME 1 GM in D5W 50 ML IV SCH (20:26)
[2017-06-15] MEDS: ENALAPRILAT DIHYDRATE 1.25 MG/ML VIAL IVP PRN (22:24)
[2017-06-15] MEDS: cloNIDine HCL 0.1 MG TABLET PO PRN (23:21)
[2017-06-16] VITALS (30 sets, daily range): BP systolic 91–186
[2017-06-16] MEDS: LevALBUTEROL HCL 1.25 MG/0.5 ML *CONC.* VIAL.NEB (XOPENEX CONC.) INH SCH ×4 (01:47→19:35)
[2017-06-16] MEDS: cloNIDine HCL 0.1 MG TABLET PO PRN ×2 (05:14→11:18)
[2017-06-16 05:54] LABS: BASOPHILS % (AUTO) 0.1 % (0.0-2.0); EOSINOPHILS % (AUTO) 0.1 % (0.0-4.0); HEMATOCRIT 25.3 % (36-48); HEMOGLOBIN 8.4 g/dL (12.0-16.0); LYMPHOCYTES # (AUTO) 0.4 K/uL (1.0-5.5); LYMPHOCYTES % (AUTO) 2.2 % (20.5-51.5); MEAN CORPUSCULAR HEMOGLOBIN 31 pg (27-31); MEAN CORPUSCULAR HGB CONC 33 % (32-36); MONOCYTES # (AUTO) 0.2 K/uL (0.0-1.0); MONOCYTES % (AUTO) 1.3 % (1.7-9.3); NEUTROPHILS # (AUTO) 15.4 K/uL (1.8-7.7); NEUTROPHILS % (AUTO) 96.3 % (40.0-70.0); PLATELET COUNT (AUTO) 339 K/uL (130-430); RED BLOOD CELL COUNT(AUTO) 2.71 MIL/uL (4.2-6.2); RED CELL DISTRIBUTION WIDTH 15.5 % (9.0-15.0)
[2017-06-16 06:22] LABS: ALANINE AMINOTRANSFERASE 30 U/L (12-78); ALBUMIN 1.4 g/dL (3.4-4.8); ANION GAP 4 (5-15); ASPARTATE AMINOTRANSFERASE 22 U/L (10-37); CALCIUM 7.5 mg/dL (8.4-11.0); CHLORIDE 104 mmol/L (98-107); CREATININE 0.56 mg/dL (0.55-1.30); GLUCOSE 196 mg/dL (70-99); POTASSIUM 3.7 mmol/L (3.5-5.1); SODIUM SERUM 136 mmol/L (136-145); TOTAL BILIRUBIN 0.2 mg/dL (0.0-1.0); UREA NITROGEN, BLOOD 27 mg/dL (8-21)
[2017-06-16] MEDS: INSULIN REGULAR, HUMAN 100 UNITS/ML, 10 ML VIAL (novoLIN R) SUBCUT PRN ×4 (06:26→20:05)
[2017-06-16 06:56] LABS: MEAN CORPUSCULAR VOLUME 94 fL (79.0-98.0)
[2017-06-16] MEDS: ACETYLCYSTEINE 20% 4 ML VIAL (RT) INH SCH ×3 (07:09→19:36)
[2017-06-16] MEDS ORDERED: MORPHINE 2 MG/ML INJ. SYRINGE ONE (08:51)
[2017-06-16] MEDS: LACTULOSE 20 GM/30 ML UDC PO SCH ×2 (09:11→20:01)
[2017-06-16] MEDS: CEFEPIME 1 GM in D5W 50 ML IV SCH ×2 (09:11→20:01)
[2017-06-16] MEDS: methylPREDNISolone SOD SUCC 40 MG/ML VIAL IVP SCH ×2 (09:11→20:03)
[2017-06-16] MEDS: AMIODARONE HCL 200 MG TABLET PO SCH ×2 (09:12→21:12)
[2017-06-16] MEDS: METOPROLOL TARTRATE 50 MG TABLET PO SCH ×2 (09:12→20:03)
[2017-06-16] MEDS: 0.45% NACL 1,000 ML IV SCH ×2 (09:13→23:43)
[2017-06-16] MEDS: VANCOMYCIN HCL 500 MG in NS 100 ML IV SCH ×2 (11:12→23:45)
[2017-06-16] MEDS: FLUCONAZOLE 200 mg/ NS 100 ML IV SCH (12:13)
[2017-06-16] MEDS: IBUPROFEN 100 MG/5 ML UDC NG PRN (12:13)
[2017-06-16] MEDS: LORazepam 2 MG/ML VIAL IVP PRN (13:03)
[2017-06-16] MEDS ORDERED: NS 250 ML IV ONE (15:30)
[2017-06-16] MEDS: MORPHINE 2 MG/ML INJ. SYRINGE IVP PRN (19:50)
[2017-06-16] MEDS: SIMVASTATIN 20 MG TABLET PO SCH (20:02)
[2017-06-16] MEDS: PIPERACILLIN/TAZO 4.5GM/DEX-IS 100 ML IV SCH (22:00)
[2017-06-16] MEDS: ENALAPRILAT DIHYDRATE 1.25 MG/ML VIAL IVP PRN (22:25)
[2017-06-16] MEDS ORDERED: PIPERACILLIN/TAZOBACTAM 4.5 GM/VIAL (ZOSYN) IV ONE (23:45)
[2017-06-17] VITALS (31 sets, daily range): BP systolic 90–183
[2017-06-17] MEDS: LevALBUTEROL HCL 1.25 MG/0.5 ML *CONC.* VIAL.NEB (XOPENEX CONC.) INH SCH ×3 (00:58→19:32)
[2017-06-17] MEDS: LORazepam 2 MG/ML VIAL IVP PRN (04:33)
[2017-06-17] MEDS: PIPERACILLIN/TAZO 4.5GM/DEX-IS 100 ML IV SCH ×3 (05:24→21:09)
[2017-06-17] MEDS: MORPHINE 2 MG/ML INJ. SYRINGE IVP PRN ×5 (05:25→21:09)
[2017-06-17] MEDS: INSULIN REGULAR, HUMAN 100 UNITS/ML, 10 ML VIAL (novoLIN R) SUBCUT PRN ×3 (06:20→17:09)
[2017-06-17 06:42] LABS: ANION GAP 3 (5-15); CALCIUM 7.9 mg/dL (8.4-11.0); CHLORIDE 104 mmol/L (98-107); CREATININE 0.67 mg/dL (0.55-1.30); GLUCOSE 250 mg/dL (70-99); POTASSIUM 3.9 mmol/L (3.5-5.1); SODIUM SERUM 136 mmol/L (136-145); UREA NITROGEN, BLOOD 27 mg/dL (8-21)
[2017-06-17 06:45] LABS: EOSINOPHILS % (AUTO) 0.1 % (0.0-4.0); WHITE BLOOD COUNT (AUTO) 14.6 K/uL (4.8-10.8)
[2017-06-17 06:56] LABS: BASOPHILS % (AUTO) 0.1 % (0.0-2.0); HEMATOCRIT 25.3 % (36-48); HEMOGLOBIN 8.1 g/dL (12.0-16.0); LYMPHOCYTES # (AUTO) 0.2 K/uL (1.0-5.5); LYMPHOCYTES % (AUTO) 1.7 % (20.5-51.5); MEAN CORPUSCULAR HEMOGLOBIN 30 pg (27-31); MEAN CORPUSCULAR HGB CONC 32 % (32-36); MEAN CORPUSCULAR VOLUME 94 fL (79.0-98.0); MONOCYTES # (AUTO) 0.1 K/uL (0.0-1.0); NEUTROPHILS # (AUTO) 14.3 K/uL (1.8-7.7); NEUTROPHILS % (AUTO) 97.1 % (40.0-70.0); PLATELET COUNT (AUTO) 331 K/uL (130-430); RED BLOOD CELL COUNT(AUTO) 2.69 MIL/uL (4.2-6.2); RED CELL DISTRIBUTION WIDTH 15.4 % (9.0-15.0)
[2017-06-17] MEDS: ACETYLCYSTEINE 20% 4 ML VIAL (RT) INH SCH ×2 (07:53→20:26)
[2017-06-17] MEDS: CEFEPIME 1 GM in D5W 50 ML IV SCH (08:30)
[2017-06-17] MEDS: LACTULOSE 20 GM/30 ML UDC PO SCH ×2 (08:30→20:10)
[2017-06-17] MEDS: methylPREDNISolone SOD SUCC 40 MG/ML VIAL IVP SCH ×2 (08:31→20:10)
[2017-06-17] MEDS: METOPROLOL TARTRATE 50 MG TABLET PO SCH ×2 (08:31→20:11)
[2017-06-17] MEDS: AMIODARONE HCL 200 MG TABLET PO SCH ×2 (08:32→20:11)
[2017-06-17] MEDS: NACL 0.9% 1,000 ML IV SCH ×2 (09:07→20:33)
[2017-06-17] MEDS ORDERED: fentaNYL CITRATE/PF 100 MCG/2 ML AMP ONE (11:11)
[2017-06-17] MEDS: FLUCONAZOLE 200 mg/ NS 100 ML IV SCH (11:29)
[2017-06-17] MEDS: VANCOMYCIN HCL 500 MG in NS 100 ML IV SCH ×2 (12:44→22:04)
[2017-06-17] MEDS: ENALAPRILAT DIHYDRATE 1.25 MG/ML VIAL IVP PRN (13:22)
[2017-06-17] MEDS ORDERED: ACETYLCYSTEINE 20% 4 ML VIAL (RT) ONE (13:38)
[2017-06-17] MEDS: MIDAZOLAM HCL 5 MG/5 ML VIAL ONE ×2 (15:10→15:15)
[2017-06-17] MEDS: SIMVASTATIN 20 MG TABLET PO SCH (20:11)
[2017-06-18] VITALS (25 sets, daily range): BP systolic 85–179
[2017-06-18] MEDS: MORPHINE 2 MG/ML INJ. SYRINGE IVP PRN ×3 (01:04→10:34)
[2017-06-18] MEDS: LevALBUTEROL HCL 1.25 MG/0.5 ML *CONC.* VIAL.NEB (XOPENEX CONC.) INH SCH ×4 (01:05→19:54)
[2017-06-18] MEDS: PIPERACILLIN/TAZO 4.5GM/DEX-IS 100 ML IV SCH ×3 (05:02→21:15)
[2017-06-18] MEDS: INSULIN REGULAR, HUMAN 100 UNITS/ML, 10 ML VIAL (novoLIN R) SUBCUT PRN ×4 (06:39→21:19)
[2017-06-18 06:52] LABS: ALANINE AMINOTRANSFERASE 33 U/L (12-78); ALBUMIN 1.4 g/dL (3.4-4.8); ANION GAP 6 (5-15); ASPARTATE AMINOTRANSFERASE 21 U/L (10-37); CHLORIDE 104 mmol/L (98-107); CREATININE 0.57 mg/dL (0.55-1.30); GLUCOSE 214 mg/dL (70-99); SODIUM SERUM 138 mmol/L (136-145); TOTAL BILIRUBIN 0.2 mg/dL (0.0-1.0); UREA NITROGEN, BLOOD 22 mg/dL (8-21)
[2017-06-18 07:04] LABS: BASOPHILS % (AUTO) 0.2 % (0.0-2.0); EOSINOPHILS % (AUTO) 0.1 % (0.0-4.0); HEMOGLOBIN 8.6 g/dL (12.0-16.0); LYMPHOCYTES # (AUTO) 0.4 K/uL (1.0-5.5); LYMPHOCYTES % (AUTO) 2.5 % (20.5-51.5); MEAN CORPUSCULAR HEMOGLOBIN 30 pg (27-31); MEAN CORPUSCULAR HGB CONC 32 % (32-36); MEAN CORPUSCULAR VOLUME 93 fL (79.0-98.0); MONOCYTES # (AUTO) 0.2 K/uL (0.0-1.0); NEUTROPHILS # (AUTO) 15.3 K/uL (1.8-7.7); NEUTROPHILS % (AUTO) 96.2 % (40.0-70.0); PLATELET COUNT (AUTO) 397 K/uL (130-430); RED BLOOD CELL COUNT(AUTO) 2.91 MIL/uL (4.2-6.2); RED CELL DISTRIBUTION WIDTH 16.1 % (9.0-15.0); WHITE BLOOD COUNT (AUTO) 15.9 K/uL (4.8-10.8)
[2017-06-18] MEDS: ACETYLCYSTEINE 20% 4 ML VIAL (RT) INH SCH ×2 (07:46→13:43)
[2017-06-18] MEDS: LACTULOSE 20 GM/30 ML UDC PO SCH ×2 (08:00→21:00)
[2017-06-18] MEDS: methylPREDNISolone SOD SUCC 40 MG/ML VIAL IVP SCH (08:00)
[2017-06-18] MEDS: METOPROLOL TARTRATE 50 MG TABLET PO SCH ×2 (08:01→20:42)
[2017-06-18] MEDS: AMIODARONE HCL 200 MG TABLET PO SCH ×2 (08:01→20:42)
[2017-06-18] MEDS ORDERED: AMIODARONE HCL 150 MG in D5W 100 ML IV ONE (09:00)
[2017-06-18] MEDS ORDERED: FUROSEMIDE 20 MG/2 ML VIAL ONE (09:09)
[2017-06-18] MEDS: NACL 0.9% 1,000 ML IV SCH ×2 (09:11→17:17)
[2017-06-18] MEDS ORDERED: FUROSEMIDE 20 MG/2 ML VIAL IVP ONE (09:15)
[2017-06-18] MEDS: cloNIDine HCL 0.1 MG TABLET PO PRN ×2 (09:39→15:49)
[2017-06-18] MEDS: VANCOMYCIN HCL 500 MG in NS 100 ML IV SCH ×2 (10:04→23:11)
[2017-06-18] MEDS: FLUCONAZOLE 200 mg/ NS 100 ML IV SCH (10:04)
[2017-06-18] MEDS ORDERED: ACETYLCYSTEINE 20% 4 ML VIAL (RT) ONE (13:34)
[2017-06-18] MEDS: SIMVASTATIN 20 MG TABLET PO SCH (20:41)
[2017-06-18] MEDS: PREDNISONE 20 MG TABLET GT SCH (20:42)
[2017-06-19] MEDS: LevALBUTEROL HCL 1.25 MG/0.5 ML *CONC.* VIAL.NEB (XOPENEX CONC.) INH SCH ×4 (00:04→19:54)
[2017-06-19 00:11] VITALS: BP_SYST 161
[2017-06-19] MEDS: cloNIDine HCL 0.1 MG TABLET PO PRN ×2 (00:15→04:24)
[2017-06-19 04:19] VITALS: BP_SYST 164
[2017-06-19] MEDS: NACL 0.9% 1,000 ML IV SCH (05:57)
[2017-06-19] MEDS: PIPERACILLIN/TAZO 4.5GM/DEX-IS 100 ML IV SCH ×3 (06:00→22:21)
[2017-06-19] MEDS: INSULIN REGULAR, HUMAN 100 UNITS/ML, 10 ML VIAL (novoLIN R) SUBCUT PRN ×4 (06:16→22:47)
[2017-06-19] MEDS: ACETYLCYSTEINE 20% 4 ML VIAL (RT) INH SCH ×2 (07:40→15:00)
[2017-06-19 08:00] VITALS: BP_SYST 149
[2017-06-19] MEDS: LACTULOSE 20 GM/30 ML UDC PO SCH ×2 (08:52→22:25)
[2017-06-19] MEDS: PREDNISONE 20 MG TABLET GT SCH ×2 (08:58→22:26)
[2017-06-19] MEDS: METOPROLOL TARTRATE 50 MG TABLET PO SCH ×2 (08:58→22:27)
[2017-06-19] MEDS: AMIODARONE HCL 200 MG TABLET PO SCH ×2 (08:59→22:26)
[2017-06-19] MEDS: FLUCONAZOLE 200 mg/ NS 100 ML IV SCH (10:48)
[2017-06-19] MEDS ORDERED: FUROSEMIDE 40 MG/4 ML VIAL IVP ONE (11:00)
[2017-06-19 11:34] VITALS: BP_SYST 159
[2017-06-19 16:12] VITALS: BP_SYST 146
[2017-06-19 20:00] VITALS: BP_SYST 134
[2017-06-19] MEDS: SIMVASTATIN 20 MG TABLET PO SCH (22:26)
[2017-06-20] VITALS (9 sets, daily range): BP systolic 90–166
[2017-06-20] MEDS: cloNIDine HCL 0.1 MG TABLET PO PRN ×2 (01:13→14:31)
[2017-06-20] MEDS: NACL 0.9% 1,000 ML IV SCH (01:19)
[2017-06-20] MEDS: LevALBUTEROL HCL 1.25 MG/0.5 ML *CONC.* VIAL.NEB (XOPENEX CONC.) INH SCH ×4 (01:26→20:22)
[2017-06-20] MEDS: ACETYLCYSTEINE 20% 4 ML VIAL (RT) INH SCH ×4 (01:26→20:22)
[2017-06-20] MEDS: PIPERACILLIN/TAZO 4.5GM/DEX-IS 100 ML IV SCH ×2 (05:22→14:07)
[2017-06-20] MEDS: MORPHINE 2 MG/ML INJ. SYRINGE IVP PRN (05:23)
[2017-06-20] MEDS: INSULIN REGULAR, HUMAN 100 UNITS/ML, 10 ML VIAL (novoLIN R) SUBCUT PRN ×4 (06:34→22:01)
[2017-06-20 06:44] LABS: BASOPHILS # (AUTO) 0.1 K/uL (0.0-0.2); BASOPHILS % (AUTO) 0.5 % (0.0-2.0); EOSINOPHILS # (AUTO) 0.1 K/uL (0.0-0.4); EOSINOPHILS % (AUTO) 0.5 % (0.0-4.0); HEMATOCRIT 27.4 % (36-48); HEMOGLOBIN 8.9 g/dL (12.0-16.0); LYMPHOCYTES # (AUTO) 0.5 K/uL (1.0-5.5); LYMPHOCYTES % (AUTO) 3.5 % (20.5-51.5); MEAN CORPUSCULAR HEMOGLOBIN 30 pg (27-31); MEAN CORPUSCULAR HGB CONC 32 % (32-36); MEAN CORPUSCULAR VOLUME 93 fL (79.0-98.0); MONOCYTES # (AUTO) 0.3 K/uL (0.0-1.0); MONOCYTES % (AUTO) 2.2 % (1.7-9.3); NEUTROPHILS # (AUTO) 14.4 K/uL (1.8-7.7); NEUTROPHILS % (AUTO) 93.3 % (40.0-70.0); PLATELET COUNT (AUTO) 405 K/uL (130-430); RED BLOOD CELL COUNT(AUTO) 2.96 MIL/uL (4.2-6.2); WHITE BLOOD COUNT (AUTO) 15.4 K/uL (4.8-10.8)
[2017-06-20 07:13] LABS: ALANINE AMINOTRANSFERASE 23 U/L (12-78); ALBUMIN 1.6 g/dL (3.4-4.8); ANION GAP 5 (5-15); ASPARTATE AMINOTRANSFERASE 17 U/L (10-37); CALCIUM 7.8 mg/dL (8.4-11.0); CHLORIDE 102 mmol/L (98-107); CREATININE 0.59 mg/dL (0.55-1.30); GLUCOSE 244 mg/dL (70-99); POTASSIUM 3.6 mmol/L (3.5-5.1); SODIUM SERUM 137 mmol/L (136-145); TOTAL BILIRUBIN 0.2 mg/dL (0.0-1.0); UREA NITROGEN, BLOOD 28 mg/dL (8-21)
[2017-06-20] MEDS ORDERED: FUROSEMIDE 40 MG/4 ML VIAL IVP ONE (09:45)
[2017-06-20] MEDS ORDERED: POTASSIUM CHLORIDE 20 MEQ/PKT PACKET PO ONE (09:45)
[2017-06-20] MEDS: LACTULOSE 20 GM/30 ML UDC PO SCH ×2 (09:50→21:57)
[2017-06-20] MEDS: PREDNISONE 20 MG TABLET GT SCH ×2 (09:50→21:57)
[2017-06-20] MEDS: METOPROLOL TARTRATE 50 MG TABLET PO SCH ×2 (09:50→21:57)
[2017-06-20] MEDS: AMIODARONE HCL 200 MG TABLET PO SCH ×2 (09:51→21:57)
[2017-06-20] MEDS ORDERED: AMIODARONE HCL 150 MG in D5W 100 ML IV ONE (10:15)
[2017-06-20] MEDS ORDERED: AMIODARONE HCL 150 MG/3ML VIAL ONE (11:03)
[2017-06-20] MEDS: LevALBUTEROL HCL 1.25 MG/0.5 ML *CONC.* VIAL.NEB (XOPENEX CONC.) INH PRN (15:20)
[2017-06-20] MEDS: SIMVASTATIN 20 MG TABLET PO SCH (21:56)
[2017-06-20] MEDS: CEFEPIME 1 GM in D5W 50 ML IV SCH (22:26)
[2017-06-21] VITALS (11 sets, daily range): BP systolic 93–191
[2017-06-21] MEDS: LevALBUTEROL HCL 1.25 MG/0.5 ML *CONC.* VIAL.NEB (XOPENEX CONC.) INH SCH ×4 (00:45→19:43)
[2017-06-21] MEDS: ENALAPRILAT DIHYDRATE 1.25 MG/ML VIAL IVP PRN ×3 (04:30→16:02)
[2017-06-21] MEDS: NACL 0.9% 1,000 ML IV SCH (06:19)
[2017-06-21] MEDS: cloNIDine HCL 0.1 MG TABLET PO PRN ×3 (06:33→17:37)
[2017-06-21] MEDS: INSULIN REGULAR, HUMAN 100 UNITS/ML, 10 ML VIAL (novoLIN R) SUBCUT PRN ×4 (06:40→21:47)
[2017-06-21 07:30] LABS: CALCIUM 7.6 mg/dL (8.4-11.0); CHLORIDE 103 mmol/L (98-107); CREATININE 0.59 mg/dL (0.55-1.30); GLUCOSE 228 mg/dL (70-99); SODIUM SERUM 139 mmol/L (136-145); UREA NITROGEN, BLOOD 24 mg/dL (8-21)
[2017-06-21] MEDS: ACETYLCYSTEINE 20% 4 ML VIAL (RT) INH SCH ×2 (07:34→15:39)
[2017-06-21 07:42] LABS: BASOPHILS # (AUTO) 0.1 K/uL (0.0-0.2); BASOPHILS % (AUTO) 0.4 % (0.0-2.0); EOSINOPHILS # (AUTO) 0.2 K/uL (0.0-0.4); EOSINOPHILS % (AUTO) 1.3 % (0.0-4.0); HEMATOCRIT 26.1 % (36-48); HEMOGLOBIN 8.7 g/dL (12.0-16.0); LYMPHOCYTES # (AUTO) 0.8 K/uL (1.0-5.5); LYMPHOCYTES % (AUTO) 4.6 % (20.5-51.5); MEAN CORPUSCULAR HEMOGLOBIN 31 pg (27-31); MEAN CORPUSCULAR HGB CONC 33 % (32-36); MEAN CORPUSCULAR VOLUME 93 fL (79.0-98.0); MONOCYTES # (AUTO) 0.6 K/uL (0.0-1.0); MONOCYTES % (AUTO) 3.5 % (1.7-9.3); NEUTROPHILS # (AUTO) 14.8 K/uL (1.8-7.7); NEUTROPHILS % (AUTO) 90.2 % (40.0-70.0); RED BLOOD CELL COUNT(AUTO) 2.82 MIL/uL (4.2-6.2); RED CELL DISTRIBUTION WIDTH 17.8 % (9.0-15.0); WHITE BLOOD COUNT (AUTO) 16.5 K/uL (4.8-10.8)
[2017-06-21 07:59] LABS: ANION GAP < 3 (5-15)
[2017-06-21] MEDS: LACTULOSE 20 GM/30 ML UDC PO SCH ×2 (09:05→21:23)
[2017-06-21] MEDS: AMIODARONE HCL 200 MG TABLET PO SCH ×2 (09:05→21:24)
[2017-06-21] MEDS: CEFEPIME 1 GM in D5W 50 ML IV SCH ×2 (09:05→21:27)
[2017-06-21] MEDS: PREDNISONE 20 MG TABLET GT SCH (09:06)
[2017-06-21] MEDS: METOPROLOL TARTRATE 50 MG TABLET PO SCH ×2 (09:06→21:25)
[2017-06-21 10:04] LABS: PLATELET COUNT (AUTO) 343 K/uL (130-430)
[2017-06-21] MEDS ORDERED: FUROSEMIDE 40 MG/4 ML VIAL IVP ONE (11:30)
[2017-06-21] MEDS: SIMVASTATIN 20 MG TABLET PO SCH (21:23)
[2017-06-22] VITALS (9 sets, daily range): BP systolic 124–186
[2017-06-22] MEDS: LevALBUTEROL HCL 1.25 MG/0.5 ML *CONC.* VIAL.NEB (XOPENEX CONC.) INH SCH ×4 (01:04→20:27)
[2017-06-22] MEDS: INSULIN REGULAR, HUMAN 100 UNITS/ML, 10 ML VIAL (novoLIN R) SUBCUT PRN ×4 (06:21→21:37)
[2017-06-22 07:18] LABS: BASOPHILS # (AUTO) 0.1 K/uL (0.0-0.2); BASOPHILS % (AUTO) 0.6 % (0.0-2.0); EOSINOPHILS # (AUTO) 0.8 K/uL (0.0-0.4); EOSINOPHILS % (AUTO) 5.1 % (0.0-4.0); HEMATOCRIT 26.2 % (36-48); HEMOGLOBIN 8.6 g/dL (12.0-16.0); LYMPHOCYTES # (AUTO) 0.8 K/uL (1.0-5.5); LYMPHOCYTES % (AUTO) 4.7 % (20.5-51.5); MEAN CORPUSCULAR HEMOGLOBIN 31 pg (27-31); MEAN CORPUSCULAR HGB CONC 33 % (32-36); MEAN CORPUSCULAR VOLUME 94 fL (79.0-98.0); MONOCYTES # (AUTO) 0.6 K/uL (0.0-1.0); MONOCYTES % (AUTO) 3.6 % (1.7-9.3); NEUTROPHILS # (AUTO) 13.8 K/uL (1.8-7.7); PLATELET COUNT (AUTO) 377 K/uL (130-430); RED CELL DISTRIBUTION WIDTH 17.7 % (9.0-15.0); WHITE BLOOD COUNT (AUTO) 16.1 K/uL (4.8-10.8)
[2017-06-22 07:47] LABS: CHLORIDE 101 mmol/L (98-107); CREATININE 0.46 mg/dL (0.55-1.30); GLUCOSE 200 mg/dL (70-99); POTASSIUM 3.6 mmol/L (3.5-5.1); SODIUM SERUM 135 mmol/L (136-145); UREA NITROGEN, BLOOD 28 mg/dL (8-21)
[2017-06-22] MEDS: ACETYLCYSTEINE 20% 4 ML VIAL (RT) INH SCH ×2 (07:58→15:00)
[2017-06-22 08:31] LABS: ANION GAP < 3 (5-15)
[2017-06-22] MEDS: CEFEPIME 1 GM in D5W 50 ML IV SCH ×2 (09:24→21:43)
[2017-06-22] MEDS: METOPROLOL TARTRATE 50 MG TABLET PO SCH ×2 (09:25→21:33)
[2017-06-22] MEDS: AMIODARONE HCL 200 MG TABLET PO SCH ×2 (09:26→21:33)
[2017-06-22] MEDS: PREDNISONE 20 MG TABLET GT SCH (09:26)
[2017-06-22] MEDS: LACTULOSE 20 GM/30 ML UDC PO SCH ×2 (09:27→21:33)
[2017-06-22] MEDS ORDERED: FUROSEMIDE 20 MG/2 ML VIAL IVP ONE ×2 (09:30)
[2017-06-22] MEDS: NACL 0.9% 1,000 ML IV SCH (09:57)
[2017-06-22] MEDS: ENALAPRILAT DIHYDRATE 1.25 MG/ML VIAL IVP PRN ×3 (12:04→21:32)
[2017-06-22] MEDS ORDERED: amLODIPine BESYLATE 5 MG TABLET PO ONE ×2 (13:30→14:30)
[2017-06-22] MEDS: HEPARIN SODIUM,PORCINE 5000 UNITS/ML VIAL SUBCUT SCH ×2 (14:17→21:37)
[2017-06-22] MEDS: cloNIDine HCL 0.1 MG TABLET PO PRN (18:34)
[2017-06-22] MEDS: SIMVASTATIN 20 MG TABLET PO SCH (21:33)
[2017-06-23] VITALS (7 sets, daily range): BP systolic 104–184
[2017-06-23] MEDS: LORazepam 2 MG/ML VIAL IVP PRN (00:59)
[2017-06-23] MEDS: LevALBUTEROL HCL 1.25 MG/0.5 ML *CONC.* VIAL.NEB (XOPENEX CONC.) INH SCH ×4 (01:37→19:25)
[2017-06-23] MEDS: INSULIN REGULAR, HUMAN 100 UNITS/ML, 10 ML VIAL (novoLIN R) SUBCUT PRN ×4 (06:10→21:33)
[2017-06-23] MEDS: HEPARIN SODIUM,PORCINE 5000 UNITS/ML VIAL SUBCUT SCH ×3 (06:11→21:34)
[2017-06-23 07:34] LABS: CALCIUM 8.1 mg/dL (8.4-11.0); CHLORIDE 101 mmol/L (98-107); CREATININE 0.48 mg/dL (0.55-1.30); GLUCOSE 195 mg/dL (70-99); POTASSIUM 4.1 mmol/L (3.5-5.1); SODIUM SERUM 138 mmol/L (136-145); UREA NITROGEN, BLOOD 24 mg/dL (8-21)
[2017-06-23] MEDS: ACETYLCYSTEINE 20% 4 ML VIAL (RT) INH SCH ×3 (07:37→21:00)
[2017-06-23 08:18] LABS: BASOPHILS # (AUTO) 0.2 K/uL (0.0-0.2); BASOPHILS % (AUTO) 1.1 % (0.0-2.0); EOSINOPHILS # (AUTO) 0.7 K/uL (0.0-0.4); EOSINOPHILS % (AUTO) 4.4 % (0.0-4.0); HEMATOCRIT 25.7 % (36-48); HEMOGLOBIN 8.5 g/dL (12.0-16.0); LYMPHOCYTES # (AUTO) 0.8 K/uL (1.0-5.5); LYMPHOCYTES % (AUTO) 5.4 % (20.5-51.5); MEAN CORPUSCULAR HEMOGLOBIN 32 pg (27-31); MEAN CORPUSCULAR HGB CONC 33 % (32-36); MONOCYTES # (AUTO) 0.5 K/uL (0.0-1.0); MONOCYTES % (AUTO) 3.6 % (1.7-9.3); NEUTROPHILS # (AUTO) 12.8 K/uL (1.8-7.7); PLATELET COUNT (AUTO) 368 K/uL (130-430); RED BLOOD CELL COUNT(AUTO) 2.69 MIL/uL (4.2-6.2)
[2017-06-23 08:22] LABS: MEAN CORPUSCULAR VOLUME 95 fL (79.0-98.0)
[2017-06-23 08:23] LABS: NEUTROPHILS % (AUTO) 85.5 % (40.0-70.0)
[2017-06-23 08:39] LABS: ANION GAP < 3 (5-15)
[2017-06-23] MEDS ORDERED: FUROSEMIDE 20 MG/2 ML VIAL IVP ONE (09:15)
[2017-06-23] MEDS: LACTULOSE 20 GM/30 ML UDC PO SCH ×2 (09:35→21:28)
[2017-06-23] MEDS: CEFEPIME 1 GM in D5W 50 ML IV SCH ×2 (09:35→21:27)
[2017-06-23] MEDS: PREDNISONE 20 MG TABLET GT SCH (09:36)
[2017-06-23] MEDS: METOPROLOL TARTRATE 50 MG TABLET PO SCH ×2 (09:36→21:29)
[2017-06-23] MEDS: AMIODARONE HCL 200 MG TABLET PO SCH (09:37)
[2017-06-23] MEDS: NACL 0.9% 1,000 ML IV SCH (09:37)
[2017-06-23] MEDS ORDERED: PRED20TA GT (11:05)
[2017-06-23] MEDS ORDERED: Fingerstick Blood Glucose Test XX (11:05)
[2017-06-23] MEDS ORDERED: LEVA1.256 INH ×2 (11:05)
[2017-06-23] MEDS ORDERED: MUC20RT INH (11:05)
[2017-06-23] MEDS ORDERED: METO-442 PO (11:05)
[2017-06-23] MEDS ORDERED: SSREG SUBCUT (11:05)
[2017-06-23] MEDS: cloNIDine HCL 0.1 MG TABLET PO PRN ×2 (12:19→21:29)
[2017-06-23] MEDS ORDERED: METOLAZONE 5 MG TABLET PO ONE (12:30)
[2017-06-23] MEDS: MORPHINE 2 MG/ML INJ. SYRINGE IVP PRN ×2 (17:18→23:57)
[2017-06-23] MEDS: SIMVASTATIN 20 MG TABLET PO SCH (21:29)
[2017-06-24] VITALS: BP_SYST 178
[2017-06-24] MEDS: LevALBUTEROL HCL 1.25 MG/0.5 ML *CONC.* VIAL.NEB (XOPENEX CONC.) INH SCH ×4 (01:18→19:36)
[2017-06-24] MEDS: cloNIDine HCL 0.1 MG TABLET PO PRN ×2 (04:40→21:54)
[2017-06-24] MEDS: INSULIN REGULAR, HUMAN 100 UNITS/ML, 10 ML VIAL (novoLIN R) SUBCUT PRN ×4 (06:26→22:02)
[2017-06-24] MEDS: HEPARIN SODIUM,PORCINE 5000 UNITS/ML VIAL SUBCUT SCH ×3 (06:26→22:03)
[2017-06-24] MEDS: ACETYLCYSTEINE 20% 4 ML VIAL (RT) INH SCH ×2 (07:39→13:14)
[2017-06-24 08:15] VITALS: BP_SYST 165
[2017-06-24 08:19] LABS: CALCIUM 8.6 mg/dL (8.4-11.0); CHLORIDE 94 mmol/L (98-107); GLUCOSE 185 mg/dL (70-99); SODIUM SERUM 131 mmol/L (136-145); UREA NITROGEN, BLOOD 23 mg/dL (8-21)
[2017-06-24 08:43] LABS: BASOPHILS # (AUTO) 0.2 K/uL (0.0-0.2); BASOPHILS % (AUTO) 1.2 % (0.0-2.0); EOSINOPHILS % (AUTO) 6.1 % (0.0-4.0); HEMOGLOBIN 8.6 g/dL (12.0-16.0); LYMPHOCYTES # (AUTO) 0.8 K/uL (1.0-5.5); LYMPHOCYTES % (AUTO) 4.6 % (20.5-51.5); MEAN CORPUSCULAR HEMOGLOBIN 30 pg (27-31); MEAN CORPUSCULAR HGB CONC 32 % (32-36); MEAN CORPUSCULAR VOLUME 94 fL (79.0-98.0); MONOCYTES # (AUTO) 0.5 K/uL (0.0-1.0); MONOCYTES % (AUTO) 2.7 % (1.7-9.3); NEUTROPHILS # (AUTO) 14.6 K/uL (1.8-7.7); NEUTROPHILS % (AUTO) 85.4 % (40.0-70.0); PLATELET COUNT (AUTO) 310 K/uL (130-430); RED BLOOD CELL COUNT(AUTO) 2.87 MIL/uL (4.2-6.2); RED CELL DISTRIBUTION WIDTH 18.7 % (9.0-15.0); WHITE BLOOD COUNT (AUTO) 17.1 K/uL (4.8-10.8)
[2017-06-24 08:50] LABS: ANION GAP < 3 (5-15)
[2017-06-24] MEDS: CEFEPIME 1 GM in D5W 50 ML IV SCH ×2 (09:17→21:54)
[2017-06-24] MEDS: LACTULOSE 20 GM/30 ML UDC PO SCH ×2 (09:17→21:55)
[2017-06-24] MEDS: PREDNISONE 20 MG TABLET GT SCH (09:17)
[2017-06-24] MEDS: AMIODARONE HCL 200 MG TABLET PO SCH (09:18)
[2017-06-24] MEDS: METOPROLOL TARTRATE 50 MG TABLET PO SCH ×2 (09:18→21:55)
[2017-06-24] MEDS: NACL 0.9% 1,000 ML IV SCH (09:18)
[2017-06-24] MEDS ORDERED: FUROSEMIDE 40 MG/4 ML VIAL IVP ONE (10:30)
[2017-06-24 12:08] VITALS: BP_SYST 176
[2017-06-24 16:24] VITALS: BP_SYST 157
[2017-06-24 20:00] VITALS: BP_SYST 167
[2017-06-24] MEDS: SIMVASTATIN 20 MG TABLET PO SCH (21:54)
[2017-06-25] VITALS: BP_SYST 163
[2017-06-25] MEDS: LevALBUTEROL HCL 1.25 MG/0.5 ML *CONC.* VIAL.NEB (XOPENEX CONC.) INH SCH ×3 (00:14→13:32)
[2017-06-25] MEDS: ENALAPRILAT DIHYDRATE 1.25 MG/ML VIAL IVP PRN ×3 (05:02→16:56)
[2017-06-25] MEDS: HEPARIN SODIUM,PORCINE 5000 UNITS/ML VIAL SUBCUT SCH ×2 (05:03→13:50)
[2017-06-25] MEDS: INSULIN REGULAR, HUMAN 100 UNITS/ML, 10 ML VIAL (novoLIN R) SUBCUT PRN ×3 (06:09→16:43)
[2017-06-25] MEDS: ACETYLCYSTEINE 20% 4 ML VIAL (RT) INH SCH ×2 (07:02→13:32)
[2017-06-25 07:30] LABS: ALANINE AMINOTRANSFERASE 19 U/L (12-78); ALBUMIN 1.6 g/dL (3.4-4.8); ASPARTATE AMINOTRANSFERASE 19 U/L (10-37); CALCIUM 8.4 mg/dL (8.4-11.0); CHLORIDE 93 mmol/L (98-107); CREATININE 0.44 mg/dL (0.55-1.30); GLUCOSE 172 mg/dL (70-99); POTASSIUM 3.7 mmol/L (3.5-5.1); SODIUM SERUM 129 mmol/L (136-145); TOTAL BILIRUBIN 0.2 mg/dL (0.0-1.0); UREA NITROGEN, BLOOD 21 mg/dL (8-21)
[2017-06-25 07:57] LABS: ANION GAP < 3 (5-15)
[2017-06-25 08:00] VITALS: BP_SYST 141
[2017-06-25] MEDS: CEFEPIME 1 GM in D5W 50 ML IV SCH (08:46)
[2017-06-25] MEDS: METOPROLOL TARTRATE 50 MG TABLET PO SCH (08:51)
[2017-06-25] MEDS: AMIODARONE HCL 200 MG TABLET PO SCH (08:51)
[2017-06-25] MEDS: LACTULOSE 20 GM/30 ML UDC PO SCH (08:52)
[2017-06-25] MEDS: PREDNISONE 20 MG TABLET GT SCH (08:52)
[2017-06-25] MEDS: NACL 0.9% 1,000 ML IV SCH (09:57)
[2017-06-25 11:57] VITALS: BP_SYST 205
[2017-06-25 16:00] VITALS: BP_SYST 186
[2017-06-25 16:51] VITALS: BP_SYST 165
[2017-06-25] MEDS: cloNIDine HCL 0.1 MG TABLET PO PRN (18:20)
== END 2017-06-25 18:33 | DRG 4 ==
LOC: SED 06:19 → SMU 09:49 → STU 06-03 00:54 → SIC 06-03 16:52 → STU 06-04 18:15 → SIC 06-05 15:00 → STU 06-18 14:35
PROVIDERS: ADMIT Specialist; ATTEND Internal Medicine Hospice and Palliative Medicine
PROC: 5A09357 Assistance with Respiratory Ventilation, Less than 24 Consecutive Hours, Continuous Positive Airway Pressure (ICD-10-PCS; 2017-06-03)
PROC: 5A1955Z Respiratory Ventilation, Greater than 96 Consecutive Hours (ICD-10-PCS; principal; 2017-06-05)
PROC: 0BH17EZ Insertion of Endotracheal Airway into Trachea, Via Natural or Artificial Opening (ICD-10-PCS; 2017-06-05)
PROC: 02HV33Z Insertion of Infusion Device into Superior Vena Cava, Percutaneous Approach (ICD-10-PCS; 2017-06-06)
PROC: B548ZZA Ultrasonography of Superior Vena Cava, Guidance (ICD-10-PCS; 2017-06-06)
PROC: 0B110F4 Bypass Trachea to Cutaneous with Tracheostomy Device, Open Approach (ICD-10-PCS; 2017-06-14)
PROC: 0DH63UZ Insertion of Feeding Device into Stomach, Percutaneous Approach (ICD-10-PCS; 2017-06-17)
PROC: 3E0G76Z Introduction of Nutritional Substance into Upper GI, Via Natural or Artificial Opening (ICD-10-PCS; 2017-06-17)
PROC: 0DB98ZX Excision of Duodenum, Via Natural or Artificial Opening Endoscopic, Diagnostic (ICD-10-PCS; 2017-06-19)
PROC: 0DB68ZX Excision of Stomach, Via Natural or Artificial Opening Endoscopic, Diagnostic (ICD-10-PCS; 2017-06-19)
PROC: 0DB58ZX Excision of Esophagus, Via Natural or Artificial Opening Endoscopic, Diagnostic (ICD-10-PCS; 2017-06-19)
DX: J96.01 Acute respiratory failure with hypoxia (principal); J69.0 Pneumonitis due to inhalation of food and vomit; R65.21 Severe sepsis with septic shock; N17.0 Acute kidney failure with tubular necrosis; E43 Unspecified severe protein-calorie malnutrition; A41.9 Sepsis, unspecified organism; G93.41 Metabolic encephalopathy; R53.2 Functional quadriplegia; R13.10 Dysphagia, unspecified; I27.20 Pulmonary hypertension, unspecified; E11.22 Type 2 diabetes mellitus with diabetic chronic kidney disease; I48.0 Paroxysmal atrial fibrillation; T38.0X5A Adverse effect of glucocorticoids and synthetic analogues, initial encounter; D64.9 Anemia, unspecified; E78.5 Hyperlipidemia, unspecified; I12.9 Hypertensive chronic kidney disease with stage 1 through stage 4 chronic kidney disease, or unspecified chronic kidney disease; I25.10 Atherosclerotic heart disease of native coronary artery without angina pectoris; K20.9 Esophagitis, unspecified; K29.70 Gastritis, unspecified, without bleeding; K29.80 Duodenitis without bleeding; K56.41 Fecal impaction; N18.9 Chronic kidney disease, unspecified; Z86.011 Personal history of benign neoplasm of the brain; Z87.01 Personal history of pneumonia (recurrent); Z98.891 History of uterine scar from previous surgery; Z90.49 Acquired absence of other specified parts of digestive tract; Y92.89 Other specified places as the place of occurrence of the external cause; Z68.33 Body mass index [BMI] 33.0-33.9, adult; I49.9 Cardiac arrhythmia, unspecified; D63.8 Anemia in other chronic diseases classified elsewhere
CPT/HCPCS: 36415; 36600; 43246; 71045; 71250-TC; 74018; 80048; 80053; 80202-TC; 82803-TC; 82962; 83605; 83735-TC; 83880; 84100-TC; 84484; 85007; 85025; 85027; 85610-TC; 85730-TC; 86710; 87040-TC; 87070-TC; 87081; 87086; 87205-TC; 87230-TC; 88305; 88312; 88313; 92610-GN; 93005; 93306; 94002; 94003; 94640; 94660; 94760; 96365; 99285; C1751; J0171; J0282; J0360; J0456; J0692; J0696; J1030; J1450; J1644; J1815; J1940; J1956; J2060; J2250; J2270; J2405; J2543; J2704; J3010; J3370; J3490; J7030; J7040; J7050; J7060; J7512